=== PATIENT | male | born 1955 | race Caucasian/White ===

== ENCOUNTER 2020-10-24 16:52 | Inpatient (IN) ==
[2020-10-24 17:29] LABS: Platelet Count 241 K/mcL (140-400); Red Blood Count 4.34 M/mcL (4.19-5.50)
[2020-10-24 17:30] LABS: Basophils # 0.1 K/mcL (0.0-0.2); Basophils % 0.8 %; Eosinophils # 0.3 K/mcL (0.0-0.6); Eosinophils % 2.5 %; Hematocrit 39.5 % (37.5-50.1); Hemoglobin 11.2 g/dL (12.9-16.9); Immature Granulocytes % 2.9 % (0-4); Lymphocytes # 1.4 K/mcL (0.6-4.6); Lymphocytes % 13.9 %; Mean Corpuscular HGB Conc 28.4 g/dL (31.6-35.5); Mean Corpuscular Hemoglobin 25.8 pg (28.0-33.3); Mean Platelet Volume 9.9 fL (9.4-12.4); Monocytes # 0.6 K/mcL (0.0-1.3); Monocytes % 5.3 %; Neutrophils # 7.7 K/mcL (1.6-8.9); Segmented Neutrophils % 74.6 %; White Blood Count 10.3 K/mcL (4.3-11.1)
[2020-10-24 17:41] LABS: Amphetamine Screen,Urine Negative ng/mL (Cutoff=1000); Barbiturate Screen,Urine Negative ng/mL (Cutoff=200); Benzodiazepines Screen,Urine Negative ng/mL (Cutoff=200); Cannabinoid Screen,Urine Negative ng/mL (Cutoff = 50); Cocaine Screen,Urine Negative ng/mL (Cutoff= 300); Opiate Screen,Urine Negative ng/mL (Cutoff=300); Phencyclidine Screen,Urine Negative ng/mL (Cutoff=25)
[2020-10-24 17:48] LABS: INR 1.1; Prothrombin Time 12.9 Seconds (9.4-12.1)
[2020-10-24 17:49] LABS: Alanine Aminotransferase 8 Units/L (7-52); Albumin 3.6 g/dL (3.5-5.7); Albumin/Globulin Ratio 1.3 (1.1-2.2); Alkaline Phosphatase 67 Units/L (34-104); Aspartate Amino Transferase 12 Units/L (13-39); BUN/Creatinine Ratio 29 (6-26); Bilirubin,Indirect 0.2 mg/dL (0.0-1.0); Bilirubin,Total 0.2 mg/dL (0.3-1.0); Blood Urea Nitrogen 42 mg/dL (8-23); Calcium 8.9 mg/dL (8.6-10.3); Carbon Dioxide 39 mEq/L (23-29); Chloride 100 mEq/L (98-107); Globulin 2.8 g/dL (2.4-3.5); Glucose 154 mg/dL (70-105); Osmolality,Calculated 308 (280-300); Potassium 5.2 mEq/L (3.5-5.1); Sodium 142 mEq/L (136-145); Total Protein 6.4 g/dL (6.4-8.9); Troponin I 0.03 ng/mL (< 0.04); eGFR For African Americans > 60 (> 60); eGFR For Non-African Americans 50 (> 60)
[2020-10-24 17:51] LABS: Activated Partial Thrombo Time 29.2 Seconds (26.0-36.0)
[2020-10-24 17:53] LABS: Hypochromasia Present (Not Present); Microcytosis Present (Not Present); Ovalocytes 1+ (Not Present); Platelet Estimate Normal (Normal); Stomatocytes 1+ (Not Present)
[2020-10-24 17:54] LABS: Bacteria,Urine Few per hpf (None-Few); Bilirubin,Urine Negative (Negative); Blood,Urine Negative (Negative); Clarity,Urine Turbid (Clear); Color,Urine Yellow (Yellow); Glucose,Urine (UA) Normal (Normal); Granular Casts,Urine Moderate per lpf (None Seen); Hyaline Casts,Urine Few per lpf (None Seen); Ketones,Urine Negative (Negative); Leukocyte Esterase,Urine Moderate (Negative); Mucus,Urine Few per lpf (None-Few); Nitrite,Urine Negative (Negative); Protein,Urine Trace mg/dL (Neg-Trace); RBC,Urine 0-3 per hpf (0-3); Squamous Epithelial Cell,Urine Few per hpf (None-Few); Tear Drop Cells 1+ (Not Present); Urobilinogen,Urine Normal (Normal)
[2020-10-24] MEDS ORDERED: cefTRIAXone 1,000 MG in 0.9 % Sodium Chloride Mini Bag 100 ML IVPB ONE (18:21)
[2020-10-24] MEDS ORDERED: cefTRIAXone 1,000 MG in Water for inj. (sterile) 10 ML IVP ONE (18:45)
[2020-10-24 18:58] LABS: VBG HCO3 33 mEq/L (21-27); VBG PCO2 71 mmHg (41-51); VBG PH 7.27 pH Units (7.32-7.42); VBG PO2 150 mmHg (25-50)
[2020-10-24] MEDS ORDERED: Naloxone 0.4 MG/ML INJ IVP PRN (20:31)
[2020-10-24 20:56] LABS: C-Reactive Protein 14 mg/L (Less than 10)
[2020-10-24] MEDS ORDERED: Lactulose 200 GM, Sodium Chloride IRRigation 700 ML RC ONE (21:59)
[2020-10-24] MEDS: carvediloL 6.25 MG TABLET PO SCH (22:39)
[2020-10-24] MEDS: MetroNIDAZOLE 500 MG/100 ML 500 MG/100 ML BAG IVPB SCH (22:45)
[2020-10-24] MEDS ORDERED: Vancomycin 2,000 MG/520 ML IV.SOLN IVPB ONE (23:00)
[2020-10-24 23:01] LABS: ABG Base Excess 10 mEq/L (-2 to 3); ABG HCO3 43 mEq/L (21-27); ABG Oxygen Saturation 89 % (95-98); ABG PCO2 122 mmHg (35-45); ABG PH 7.16 pH Units (7.32-7.45); ABG PO2 77 mmHg (85-104); ABG TCO2 47 mEq/L (20-26)
[2020-10-24] MEDS: Cefepime HCl 2,000 MG in Water for inj. (sterile) 20 ML IVP SCH (23:35)
[2020-10-25 00:10] LABS: ABG Base Excess 12 mEq/L (-2 to 3); ABG HCO3 42 mEq/L (21-27); ABG Oxygen Saturation 89 % (95-98); ABG PCO2 96 mmHg (35-45); ABG PH 7.25 pH Units (7.32-7.45); ABG PO2 71 mmHg (85-104); ABG TCO2 45 mEq/L (20-26); Blood Gas Modality AVAPS; Blood Gas VT 500 cc
[2020-10-25 01:29] LABS: Eosinophils % 0.4 %; Hemoglobin 11.3 g/dL (12.9-16.9)
[2020-10-25 01:30] LABS: Basophils # 0.1 K/mcL (0.0-0.2); Basophils % 0.8 %; Hematocrit 40.2 % (37.5-50.1); Lymphocytes # 0.9 K/mcL (0.6-4.6); Lymphocytes % 8.7 %; Mean Corpuscular HGB Conc 28.1 g/dL (31.6-35.5); Mean Corpuscular Hemoglobin 24.9 pg (28.0-33.3); Mean Corpuscular Volume 88.7 fL (83.0-100.0); Mean Platelet Volume 10.1 fL (9.4-12.4); Monocytes # 0.6 K/mcL (0.0-1.3); Monocytes % 5.3 %; Neutrophils # 8.6 K/mcL (1.6-8.9); Nucleated Red Blood Cells 0.2 /100 WBC (0); Platelet Count 228 K/mcL (140-400); Red Blood Count 4.53 M/mcL (4.19-5.50); Segmented Neutrophils % 80.8 %; White Blood Count 10.6 K/mcL (4.3-11.1)
[2020-10-25 01:44] LABS: BUN/Creatinine Ratio 32 (6-26); Blood Urea Nitrogen 43 mg/dL (8-23); Calcium 8.6 mg/dL (8.6-10.3); Carbon Dioxide 34 mEq/L (23-29); Chloride 103 mEq/L (98-107); Glucose 146 mg/dL (70-105); Osmolality,Calculated 307 (280-300); Potassium 5.1 mEq/L (3.5-5.1); Sodium 142 mEq/L (136-145); eGFR For African Americans > 60 (> 60); eGFR For Non-African Americans 53 (> 60)
[2020-10-25 02:35] LABS: Anisocytosis 1+ (Not Present); Platelet Estimate Normal (Normal)
[2020-10-25 02:36] LABS: Hypochromasia Present (Not Present); Poikilocytosis 1+ (Not Present)
[2020-10-25] MEDS ORDERED: Dextrose Gel 15 GM/37.5 ML TUBE PO PRN ×2 (03:28)
[2020-10-25] MEDS ORDERED: *HR* Dextrose 50 % in Water (Vial) 50 ML VIAL IVP PRN (03:28)
[2020-10-25] MEDS ORDERED: D5% in Water 1,000 ML IVC PRN (03:28)
[2020-10-25] MEDS: *HR* Heparin 5,000 UNIT/ML VIAL SQ SCH ×3 (05:03→20:18)
[2020-10-25] MEDS: MethylPREDNISolone 40 MG/ML VIAL IVP SCH ×3 (05:03→20:17)
[2020-10-25] MEDS: MetroNIDAZOLE 500 MG/100 ML 500 MG/100 ML BAG IVPB SCH (05:04)
[2020-10-25] MEDS: Ipratropium/Albuterol Neb 3 ML IH SCH ×6 (05:33→23:11)
[2020-10-25] MEDS: Insulin LISPRO 300 UNITS/3 ML VIAL SUBQ SCH ×3 (06:06→18:53)
[2020-10-25 08:06] LABS: ABG Base Excess 11 mEq/L (-2 to 3); ABG HCO3 41 mEq/L (21-27); ABG Oxygen Saturation 95 % (95-98); ABG PCO2 95 mmHg (35-45); ABG PH 7.24 pH Units (7.32-7.45); ABG PO2 97 mmHg (85-104); ABG TCO2 44 mEq/L (20-26); Blood Gas Modality NIV; Blood Gas VT 500 cc
[2020-10-25] MEDS: Cefepime HCl 2,000 MG in Water for inj. (sterile) 20 ML IVP SCH (08:25)
[2020-10-25] MEDS: Cyanocobalamin (B-12) 1,000 MCG TABLET PO SCH (08:26)
[2020-10-25] MEDS: carvediloL 6.25 MG TABLET PO SCH ×2 (08:27→17:19)
[2020-10-25] MEDS: Magnesium Oxide 400 MG TABLET PO SCH (08:27)
[2020-10-25] MEDS: Aspirin Enteric Coated 81 MG Tablet PO SCH (08:27)
[2020-10-25] MEDS: Vitamin B Complex/Vit C/Vit E 1 EACH TABLET PO SCH (08:27)
[2020-10-25] MEDS: Cholecalciferol (D-3) 1,000 UNIT (25MCG) TABLET PO SCH (08:27)
[2020-10-25] MEDS ORDERED: Vancomycin 1,250 MG/262.5 ML IV.SOLN IVPB SCH (12:00)
[2020-10-25 17:19] LABS: ABG Base Excess 9 mEq/L (-2 to 3); ABG HCO3 37 mEq/L (21-27); ABG Oxygen Saturation 96 % (95-98); ABG PCO2 75 mmHg (35-45); ABG PO2 91 mmHg (85-104); ABG TCO2 40 mEq/L (20-26); Blood Gas Modality avaps; Blood Gas VT 550 cc
[2020-10-26 04:06] LABS: Hematocrit 31.8 % (37.5-50.1); Mean Corpuscular HGB Conc 29.6 g/dL (31.6-35.5); Mean Corpuscular Hemoglobin 25.3 pg (28.0-33.3); Mean Corpuscular Volume 85.5 fL (83.0-100.0); Mean Platelet Volume 9.9 fL (9.4-12.4); Platelet Count 188 K/mcL (140-400); Red Blood Count 3.72 M/mcL (4.19-5.50); White Blood Count 8.1 K/mcL (4.3-11.1)
[2020-10-26 04:09] LABS: Hemoglobin 9.4 g/dL (12.9-16.9)
[2020-10-26] MEDS: Ipratropium/Albuterol Neb 3 ML IH SCH ×6 (04:21→23:11)
[2020-10-26 04:22] LABS: VBG HCO3 34 mEq/L (21-27); VBG PCO2 60 mmHg (41-51); VBG PH 7.36 pH Units (7.32-7.42); VBG PO2 118 mmHg (25-50)
[2020-10-26 04:23] LABS: Calcium 8.9 mg/dL (8.6-10.3); Magnesium 2.3 mg/dL (1.6-2.6)
[2020-10-26] MEDS: Insulin LISPRO 300 UNITS/3 ML VIAL SUBQ SCH ×5 (04:28→19:30)
[2020-10-26] MEDS: MethylPREDNISolone 40 MG/ML VIAL IVP SCH ×3 (04:45→16:27)
[2020-10-26] MEDS: *HR* Heparin 5,000 UNIT/ML VIAL SQ SCH ×3 (04:45→20:28)
[2020-10-26] MEDS: Cyanocobalamin (B-12) 1,000 MCG TABLET PO SCH (09:37)
[2020-10-26] MEDS: Cholecalciferol (D-3) 1,000 UNIT (25MCG) TABLET PO SCH (09:37)
[2020-10-26] MEDS: Vitamin B Complex/Vit C/Vit E 1 EACH TABLET PO SCH (09:38)
[2020-10-26] MEDS: carvediloL 6.25 MG TABLET PO SCH ×2 (09:38→16:30)
[2020-10-26] MEDS: Aspirin Enteric Coated 81 MG Tablet PO SCH (09:38)
[2020-10-26] MEDS: Magnesium Oxide 400 MG TABLET PO SCH (09:38)
[2020-10-26] MEDS: metroNIDAZOLE 500 MG TABLET PO SCH ×3 (13:04→20:28)
[2020-10-26] MEDS: Cefdinir 300 MG CAPSULE PO SCH ×2 (13:04→20:28)
[2020-10-26] MEDS: Nystatin POWDER 30 GM BOTTLE TP SCH ×2 (16:28→20:30)
[2020-10-27] MEDS: MethylPREDNISolone 40 MG/ML VIAL IVP SCH ×2 (00:56→10:10)
[2020-10-27] MEDS: Insulin LISPRO 300 UNITS/3 ML VIAL SUBQ SCH ×4 (00:57→17:12)
[2020-10-27] MEDS: Ipratropium/Albuterol Neb 3 ML IH SCH ×4 (03:54→20:19)
[2020-10-27] MEDS: *HR* Heparin 5,000 UNIT/ML VIAL SQ SCH ×3 (04:55→21:40)
[2020-10-27 05:34] LABS: Hematocrit 34.7 % (37.5-50.1); Hemoglobin 10.2 g/dL (12.9-16.9); Mean Corpuscular HGB Conc 29.4 g/dL (31.6-35.5); Mean Corpuscular Hemoglobin 25.1 pg (28.0-33.3); Mean Corpuscular Volume 85.5 fL (83.0-100.0); Mean Platelet Volume 9.9 fL (9.4-12.4); Platelet Count 202 K/mcL (140-400); Red Blood Count 4.06 M/mcL (4.19-5.50); Red Cell Distribution Width 14.7 % (11.5-14.5); White Blood Count 6.5 K/mcL (4.3-11.1)
[2020-10-27 05:37] LABS: VBG HCO3 35 mEq/L (21-27); VBG PCO2 62 mmHg (41-51); VBG PH 7.36 pH Units (7.32-7.42); VBG PO2 52 mmHg (25-50)
[2020-10-27 05:49] LABS: BUN/Creatinine Ratio 39 (6-26); Blood Urea Nitrogen 51 mg/dL (8-23); Calcium 9.2 mg/dL (8.6-10.3); Carbon Dioxide 36 mEq/L (23-29); Chloride 100 mEq/L (98-107); Glucose 157 mg/dL (70-105); Magnesium 2.2 mg/dL (1.6-2.6); Osmolality,Calculated 307 (280-300); Potassium 4.8 mEq/L (3.5-5.1); Sodium 140 mEq/L (136-145); eGFR For African Americans > 60 (> 60); eGFR For Non-African Americans 54 (> 60)
[2020-10-27] MEDS: carvediloL 6.25 MG TABLET PO SCH ×2 (10:10→17:13)
[2020-10-27] MEDS: Cholecalciferol (D-3) 1,000 UNIT (25MCG) TABLET PO SCH (10:11)
[2020-10-27] MEDS: Magnesium Oxide 400 MG TABLET PO SCH (10:11)
[2020-10-27] MEDS: Vitamin B Complex/Vit C/Vit E 1 EACH TABLET PO SCH (10:11)
[2020-10-27] MEDS: Cyanocobalamin (B-12) 1,000 MCG TABLET PO SCH (10:11)
[2020-10-27] MEDS: Cefdinir 300 MG CAPSULE PO SCH ×2 (10:11→21:39)
[2020-10-27] MEDS: Aspirin Enteric Coated 81 MG Tablet PO SCH (10:11)
[2020-10-27] MEDS: metroNIDAZOLE 500 MG TABLET PO SCH ×3 (10:11→21:39)
[2020-10-27] MEDS: Nystatin POWDER 30 GM BOTTLE TP SCH ×3 (10:13→21:40)
[2020-10-27] MEDS ORDERED: E-Z-HD (BARIUM SULF) SUSPENSION PO ONE (10:57)
[2020-10-27] MEDS ORDERED: E-Z-PAQUE (BARIUM SULF) SUSP 1 BOTTLE PO ONE (10:57)
[2020-10-27] MEDS: predniSONE 20 MG TABLET PO SCH (12:07)
[2020-10-27] MEDS: risperiDONE 0.25 MG TABLET PO SCH (12:07)
[2020-10-27] MEDS ORDERED: Insulin LISPRO 300 UNITS/3 ML VIAL SUBQ SCH (21:00)
[2020-10-27] MEDS ORDERED: risperiDONE 1 MG TABLET PO SCH (21:00)
[2020-10-28] MEDS: Ipratropium/Albuterol Neb 3 ML IH SCH ×2 (03:51→09:12)
[2020-10-28] MEDS: *HR* Heparin 5,000 UNIT/ML VIAL SQ SCH (05:10)
[2020-10-28] MEDS: risperiDONE 0.25 MG TABLET PO SCH (07:38)
[2020-10-28] MEDS: carvediloL 6.25 MG TABLET PO SCH (07:39)
[2020-10-28] MEDS: Cefdinir 300 MG CAPSULE PO SCH (07:39)
[2020-10-28] MEDS: metroNIDAZOLE 500 MG TABLET PO SCH (07:39)
[2020-10-28] MEDS: Aspirin Enteric Coated 81 MG Tablet PO SCH (07:39)
[2020-10-28] MEDS: predniSONE 20 MG TABLET PO SCH (07:39)
[2020-10-28] MEDS: Insulin LISPRO 300 UNITS/3 ML VIAL SUBQ SCH ×2 (07:40→11:38)
[2020-10-28] MEDS ORDERED: levoFLOXacin 750 MG TABLET PO SCH (09:00)
[2020-10-28 10:15] VITALS: BP 167/69
[2020-10-28] MEDS: Nystatin POWDER 30 GM BOTTLE TP SCH (11:38)
== END 2020-10-28 12:32 | DRG 137 ==
LOC: 3ANU 16:52 → EMEROOARM 16:52 → 3ANU 20:45 → 2NNU 22:28 → SUATTDRO 10-25 01:52 → 2ANU 10-26 10:52
PROVIDERS: ADMIT Internal Medicine; ATTEND Internal Medicine

== ENCOUNTER 2021-01-30 22:32 | Inpatient (IN) ==
[2021-01-31 01:48] LABS: VBG HCO3 38 mEq/L (21-27); VBG PCO2 45 mmHg (41-51); VBG PH 7.54 pH Units (7.32-7.42); VBG PO2 192 mmHg (25-50)
[2021-01-31 01:53] LABS: Basophils % 0.4 %; Mean Corpuscular Volume 88.1 fL (83.0-100.0)
[2021-01-31 01:55] LABS: Eosinophils # 0.2 K/mcL (0.0-0.6); Eosinophils % 2.4 %; Hematocrit 27.3 % (37.5-50.1); Hemoglobin 7.3 g/dL (12.9-16.9); Lymphocytes # 0.6 K/mcL (0.6-4.6); Lymphocytes % 8.4 %; Mean Corpuscular HGB Conc 26.7 g/dL (31.6-35.5); Mean Corpuscular Hemoglobin 23.5 pg (28.0-33.3); Monocytes # 0.6 K/mcL (0.0-1.3); Monocytes % 7.7 %; Neutrophils # 6.1 K/mcL (1.6-8.9); Platelet Count 174 K/mcL (140-400); Segmented Neutrophils % 80.1 %; White Blood Count 7.6 K/mcL (4.3-11.1)
[2021-01-31 02:03] LABS: INR 1.2; Prothrombin Time 14.3 Seconds (9.4-12.1)
[2021-01-31 02:06] LABS: Activated Partial Thrombo Time 28.8 Seconds (26.0-36.0)
[2021-01-31 02:15] LABS: Alanine Aminotransferase 11 Units/L (7-52); Albumin 2.6 g/dL (3.5-5.7); Albumin/Globulin Ratio 1.2 (1.1-2.2); Alkaline Phosphatase 63 Units/L (34-104); Aspartate Amino Transferase 11 Units/L (13-39); BUN/Creatinine Ratio 35 (6-26); Bilirubin,Indirect 0.3 mg/dL (0.0-1.0); Bilirubin,Total 0.3 mg/dL (0.3-1.0); Blood Urea Nitrogen 46 mg/dL (8-23); Calcium 8.7 mg/dL (8.6-10.3); Carbon Dioxide 39 mEq/L (23-29); Chloride 107 mEq/L (98-107); Globulin 2.1 g/dL (2.4-3.5); Glucose 186 mg/dL (70-105); Osmolality,Calculated 327 (280-300); Potassium 4.1 mEq/L (3.5-5.1); Sodium 150 mEq/L (136-145); Total Protein 4.7 g/dL (6.4-8.9); Troponin I < 0.03 ng/mL (< 0.04); eGFR For African Americans > 60 (> 60); eGFR For Non-African Americans 54 (> 60)
[2021-01-31] MEDS ORDERED: 0.9 % Sodium Chloride 500 ML IVC ONE (02:26)
[2021-01-31 02:37] LABS: Anisocytosis 1+ (Not Present); Hypochromasia Present (Not Present); Platelet Estimate Normal (Normal); Poikilocytosis 1+ (Not Present)
[2021-01-31] MEDS ORDERED: Pantoprazole 40 MG VIAL IVP ONE (03:01)
[2021-01-31] MEDS ORDERED: Piperacillin/Tazobactam 3.375 GM in Water for inj. (sterile) 20 ML IVP ONE (03:02)
[2021-01-31] MEDS ORDERED: Vancomycin 2,000 MG/520 ML IV.SOLN IVPB ONE (03:30)
[2021-01-31] MEDS ORDERED: Naloxone 0.4 MG/ML INJ IVP PRN (07:59)
[2021-01-31] MEDS ORDERED: Ipratropium/Albuterol Neb 3 ML IH PRN (08:01)
[2021-01-31] MEDS ORDERED: methylPREDNISolone 125 MG/2 ML VIAL IVP ONE (08:02)
[2021-01-31] MEDS: Ipratropium/Albuterol Neb 3 ML IH SCH ×6 (08:10→23:59)
[2021-01-31 08:17] LABS: ABG Base Excess 10 mEq/L (-2 to 3); ABG HCO3 38 mEq/L (21-27); ABG Oxygen Saturation 95 % (95-98); ABG PCO2 81 mmHg (35-45); ABG PH 7.28 pH Units (7.32-7.45); ABG PO2 91 mmHg (85-104); ABG TCO2 41 mEq/L (20-26)
[2021-01-31] MEDS: Nystatin POWDER 30 GM BOTTLE TP SCH ×3 (10:41→19:48)
[2021-01-31] MEDS: MethylPREDNISolone 40 MG/ML VIAL IVP SCH (15:00)
[2021-01-31] MEDS: *HR* Heparin 5,000 UNIT/ML VIAL SQ SCH ×2 (15:00→19:48)
[2021-01-31 15:32] LABS: Bilirubin,Urine Negative (Negative); Blood,Urine Negative (Negative); Clarity,Urine Clear (Clear); Color,Urine Light-Yellow (Yellow); Glucose,Urine (UA) Normal (Normal); Ketones,Urine Negative (Negative); Leukocyte Esterase,Urine Negative (Negative); Nitrite,Urine Negative (Negative); PH,Urine 5.5 pH Units (5.0-8.0); Protein,Urine Trace mg/dL (Neg-Trace); Specific Gravity,Urine 1.016 (1.010-1.025); Urobilinogen,Urine Normal (Normal)
[2021-01-31 15:40] LABS: Potassium,Urine 49.2 mEq/L; Sodium, Urine 51.3 mEq/L
[2021-01-31] MEDS ORDERED: Piperacillin/Tazobactam 3.375 GM in 0.9 % Sodium Chloride Mini Bag 100 ML IVPB SCH (16:00)
[2021-01-31] MEDS ORDERED: Ringers Solution, Lactated 500 ML IVC ONE (17:12)
[2021-01-31] MEDS ORDERED: Ringers Solution, Lactated 1,000 ML IVC ONE ×2 (17:35→18:15)
[2021-01-31] MEDS: Cefepime HCl 2,000 MG in Water for inj. (sterile) 20 ML IVP SCH (17:37)
[2021-01-31] MEDS: Ringers Solution, Lactated 1,000 ML ONE ×2 (17:40→17:42)
[2021-01-31 17:56] LABS: Eosinophils % 0.1 %; Red Cell Distribution Width 15.9 % (11.5-14.5)
[2021-01-31 17:58] LABS: Basophils % 0.1 %; Hematocrit 31.6 % (37.5-50.1); Hemoglobin 9.1 g/dL (12.9-16.9); Immature Granulocytes % 0.7 % (0-4); Lymphocytes % 6.7 %; Mean Corpuscular HGB Conc 28.8 g/dL (31.6-35.5); Mean Corpuscular Hemoglobin 24.6 pg (28.0-33.3); Mean Corpuscular Volume 85.4 fL (83.0-100.0); Mean Platelet Volume 10.6 fL (9.4-12.4); Monocytes # 0.5 K/mcL (0.0-1.3); Monocytes % 3.4 %; Neutrophils # 12.8 K/mcL (1.6-8.9); Platelet Count 195 K/mcL (140-400); White Blood Count 14.4 K/mcL (4.3-11.1)
[2021-01-31 18:20] LABS: Hypochromasia Present (Not Present)
[2021-01-31] MEDS ORDERED: D5% in Water 1,000 ML IVC PRN (18:44)
[2021-01-31] MEDS ORDERED: *HR* Dextrose 50 % in Water (Vial) 50 ML VIAL IVP PRN (18:44)
[2021-01-31] MEDS ORDERED: Dextrose Gel 15 GM/37.5 ML TUBE PO PRN ×2 (18:44)
[2021-01-31] MEDS: risperiDONE 1 MG TABLET PO SCH (19:36)
[2021-01-31 21:39] LABS: Blood Gas Pressure Support 10 cm H2O; Mixed Venous Blood pCO2 69 mmHg (44-46); Mixed Venous Blood pH 7.34 pH Units (7.34-7.36); Mixed Venous Blood pO2 28 mmHg (35-45)
[2021-01-31] MEDS ORDERED: Acetaminophen IV 500 MG/50 ML BAG IVPB ONE (23:47)
[2021-02-01] MEDS: Insulin LISPRO 300 UNITS/3 ML VIAL SUBQ SCH ×4 (00:10→16:43)
[2021-02-01] MEDS: MethylPREDNISolone 40 MG/ML VIAL IVP SCH ×3 (00:16→16:43)
[2021-02-01] MEDS: Cefepime HCl 2,000 MG in Water for inj. (sterile) 20 ML IVP SCH ×3 (01:29→16:43)
[2021-02-01] MEDS: Ipratropium/Albuterol Neb 3 ML IH SCH ×5 (04:27→19:57)
[2021-02-01] MEDS: *HR* Heparin 5,000 UNIT/ML VIAL SQ SCH ×3 (04:50→19:41)
[2021-02-01 04:53] LABS: Eosinophils % 0.1 %; Immature Granulocytes % 1.3 % (0-4); Mean Platelet Volume 10.7 fL (9.4-12.4); Monocytes % 0.5 %
[2021-02-01 04:55] LABS: Basophils % 0.1 %; Hematocrit 30.3 % (37.5-50.1); Hemoglobin 8.8 g/dL (12.9-16.9); Immature Platelets 2.4 % (1.1-6.1); Lymphocytes # 0.4 K/mcL (0.6-4.6); Mean Corpuscular Hemoglobin 24.2 pg (28.0-33.3); Mean Corpuscular Volume 83.5 fL (83.0-100.0); Monocytes # 0.1 K/mcL (0.0-1.3); Neutrophils # 9.1 K/mcL (1.6-8.9); Platelet Count 233 K/mcL (140-400); Red Blood Count 3.63 M/mcL (4.19-5.50); Red Cell Distribution Width 15.9 % (11.5-14.5); White Blood Count 9.7 K/mcL (4.3-11.1)
[2021-02-01 05:00] LABS: INR 1.2
[2021-02-01] MEDS ORDERED: Vancomycin 1,500 MG/265 ML IV.SOLN IVPB SCH (05:00)
[2021-02-01 05:13] LABS: BUN/Creatinine Ratio 35 (6-26); Blood Urea Nitrogen 45 mg/dL (8-23); Carbon Dioxide 32 mEq/L (23-29); Chloride 108 mEq/L (98-107); Glucose 183 mg/dL (70-105); Osmolality,Calculated 320 (280-300); Potassium 4.6 mEq/L (3.5-5.1); Sodium 147 mEq/L (136-145); eGFR For African Americans > 60 (> 60); eGFR For Non-African Americans 55 (> 60)
[2021-02-01] MEDS ORDERED: Water for inj. (sterile) 20 ML IV ONE (09:44)
[2021-02-01] MEDS: risperiDONE 0.25 MG TABLET PO SCH (09:52)
[2021-02-01] MEDS: Nystatin POWDER 30 GM BOTTLE TP SCH ×3 (09:53→23:20)
[2021-02-01] MEDS: Pantoprazole 40 MG VIAL IVP SCH (09:53)
[2021-02-01] MEDS ORDERED: Vancomycin 1 EACH in 0.9 % Sodium Chloride 250 ML IVPB SCH (10:00)
[2021-02-01] MEDS: risperiDONE 1 MG TABLET PO SCH (19:41)
[2021-02-02] MEDS: Ipratropium/Albuterol Neb 3 ML IH SCH ×7 (00:16→23:38)
[2021-02-02] MEDS: MethylPREDNISolone 40 MG/ML VIAL IVP SCH ×3 (01:36→20:25)
[2021-02-02] MEDS: Cefepime HCl 2,000 MG in Water for inj. (sterile) 20 ML IVP SCH ×3 (01:36→17:27)
[2021-02-02 04:45] LABS: Basophils % 0.2 %; Hematocrit 25.3 % (37.5-50.1); Hemoglobin 7.5 g/dL (12.9-16.9); Immature Granulocytes % 0.8 % (0-4); Lymphocytes # 0.5 K/mcL (0.6-4.6); Lymphocytes % 7.5 %; Mean Corpuscular HGB Conc 29.6 g/dL (31.6-35.5); Mean Corpuscular Hemoglobin 24.6 pg (28.0-33.3); Monocytes # 0.2 K/mcL (0.0-1.3); Monocytes % 2.7 %; Neutrophils # 5.3 K/mcL (1.6-8.9); Platelet Count 201 K/mcL (140-400); Red Blood Count 3.05 M/mcL (4.19-5.50); Segmented Neutrophils % 88.8 %
[2021-02-02 04:52] LABS: INR 1.2; Prothrombin Time 14.2 Seconds (9.4-12.1)
[2021-02-02 04:59] LABS: BUN/Creatinine Ratio 35 (6-26); Blood Urea Nitrogen 49 mg/dL (8-23); Calcium 8.8 mg/dL (8.6-10.3); Carbon Dioxide 35 mEq/L (23-29); Chloride 107 mEq/L (98-107); Glucose 221 mg/dL (70-105); Osmolality,Calculated 320 (280-300); Potassium 4.4 mEq/L (3.5-5.1); Sodium 145 mEq/L (136-145); eGFR For African Americans > 60 (> 60); eGFR For Non-African Americans 51 (> 60)
[2021-02-02] MEDS: *HR* Heparin 5,000 UNIT/ML VIAL SQ SCH (05:06)
[2021-02-02] MEDS: Pantoprazole 40 MG VIAL IVP SCH (08:58)
[2021-02-02] MEDS: Insulin LISPRO 300 UNITS/3 ML VIAL SUBQ SCH ×5 (09:04→20:26)
[2021-02-02] MEDS: risperiDONE 0.25 MG TABLET PO SCH (09:14)
[2021-02-02 10:33] LABS: Hematocrit 27.8 % (37.5-50.1); Hemoglobin 7.7 g/dL (12.9-16.9)
[2021-02-02] MEDS: Nystatin POWDER 30 GM BOTTLE TP SCH ×3 (11:21→20:26)
[2021-02-02] MEDS: risperiDONE 1 MG TABLET PO SCH (20:26)
[2021-02-03] MEDS: Cefepime HCl 2,000 MG in Water for inj. (sterile) 20 ML IVP SCH ×3 (01:09→17:16)
[2021-02-03 02:43] LABS: VBG HCO3 33 mEq/L (21-27); VBG PCO2 47 mmHg (41-51); VBG PH 7.45 pH Units (7.32-7.42); VBG PO2 135 mmHg (25-50)
[2021-02-03 02:53] LABS: Segmented Neutrophils % 80.7 %
[2021-02-03 02:55] LABS: Hematocrit 26.1 % (37.5-50.1); Hemoglobin 7.8 g/dL (12.9-16.9); Immature Granulocytes % 1.6 % (0-4); Lymphocytes % 14.6 %; Mean Corpuscular HGB Conc 29.9 g/dL (31.6-35.5); Mean Corpuscular Hemoglobin 24.7 pg (28.0-33.3); Mean Corpuscular Volume 82.6 fL (83.0-100.0); Mean Platelet Volume 10.5 fL (9.4-12.4); Monocytes # 0.2 K/mcL (0.0-1.3); Monocytes % 3.1 %; Neutrophils # 4.1 K/mcL (1.6-8.9); Platelet Count 173 K/mcL (140-400); Red Blood Count 3.16 M/mcL (4.19-5.50); Red Cell Distribution Width 15.5 % (11.5-14.5); White Blood Count 5.1 K/mcL (4.3-11.1)
[2021-02-03 03:02] LABS: BUN/Creatinine Ratio 38 (6-26); Blood Urea Nitrogen 55 mg/dL (8-23); Calcium 8.5 mg/dL (8.6-10.3); Carbon Dioxide 34 mEq/L (23-29); Chloride 104 mEq/L (98-107); Glucose 219 mg/dL (70-105); Osmolality,Calculated 318 (280-300); Potassium 5.1 mEq/L (3.5-5.1); Sodium 143 mEq/L (136-145); eGFR For African Americans > 60 (> 60); eGFR For Non-African Americans 50 (> 60)
[2021-02-03 03:03] LABS: Lymphocytes # 0.7 K/mcL (0.6-4.6)
[2021-02-03] MEDS: Ipratropium/Albuterol Neb 3 ML IH SCH ×6 (03:36→22:48)
[2021-02-03 03:58] LABS: Estimated Average Glucose 134 mg/dl; Hemoglobin A1C 6.3 %
[2021-02-03] MEDS: Insulin LISPRO 300 UNITS/3 ML VIAL SUBQ SCH ×4 (07:36→20:16)
[2021-02-03] MEDS: Nystatin POWDER 30 GM BOTTLE TP SCH ×3 (09:31→20:17)
[2021-02-03] MEDS: MethylPREDNISolone 40 MG/ML VIAL IVP SCH (09:31)
[2021-02-03] MEDS: Pantoprazole 40 MG VIAL IVP SCH (09:31)
[2021-02-03] MEDS: risperiDONE 0.25 MG TABLET PO SCH (09:32)
[2021-02-03] MEDS ORDERED: Vancomycin 1,250 MG/262.5 ML IV.SOLN IVPB ONE (12:00)
[2021-02-03] MEDS ORDERED: Acetaminophen 325 MG TABLET PO PRN (17:20)
[2021-02-03] MEDS: risperiDONE 1 MG TABLET PO SCH (20:17)
[2021-02-04] MEDS: Cefepime HCl 2,000 MG in Water for inj. (sterile) 20 ML IVP SCH ×3 (01:59→16:48)
[2021-02-04 02:21] LABS: Basophils % 0.2 %; Hematocrit 25.3 % (37.5-50.1); Hemoglobin 7.4 g/dL (12.9-16.9); Immature Granulocytes % 4.7 % (0-4); Lymphocytes # 0.7 K/mcL (0.6-4.6); Lymphocytes % 12.6 %; Mean Corpuscular HGB Conc 29.2 g/dL (31.6-35.5); Mean Corpuscular Hemoglobin 23.9 pg (28.0-33.3); Mean Corpuscular Volume 81.9 fL (83.0-100.0); Monocytes # 0.4 K/mcL (0.0-1.3); Monocytes % 8.4 %; Neutrophils # 3.8 K/mcL (1.6-8.9); Nucleated Red Blood Cells 0.6 /100 WBC (0); Platelet Count 172 K/mcL (140-400); Red Blood Count 3.09 M/mcL (4.19-5.50); Red Cell Distribution Width 15.5 % (11.5-14.5); Segmented Neutrophils % 74.1 %; White Blood Count 5.1 K/mcL (4.3-11.1)
[2021-02-04 02:36] LABS: Calcium 8.4 mg/dL (8.6-10.3)
[2021-02-04] MEDS: Ipratropium/Albuterol Neb 3 ML IH SCH ×6 (03:51→23:50)
[2021-02-04] MEDS: Pantoprazole 40 MG VIAL IVP SCH (08:38)
[2021-02-04] MEDS: Insulin LISPRO 300 UNITS/3 ML VIAL SUBQ SCH ×4 (08:39→21:30)
[2021-02-04] MEDS: MethylPREDNISolone 40 MG/ML VIAL IVP SCH (08:39)
[2021-02-04] MEDS: risperiDONE 0.25 MG TABLET PO SCH (08:40)
[2021-02-04] MEDS: Nystatin POWDER 30 GM BOTTLE TP SCH ×3 (08:40→21:31)
[2021-02-04] MEDS ORDERED: 0.9 % Sodium Chloride 500 ML IVC ONE (10:08)
[2021-02-04] MEDS ORDERED: 0.9 % Sodium Chloride 1,000 ML IVC SCH (10:15)
[2021-02-04] MEDS: risperiDONE 1 MG TABLET PO SCH (21:31)
[2021-02-05] MEDS: Ipratropium/Albuterol Neb 3 ML IH SCH ×6 (03:52→23:06)
[2021-02-05] MEDS: Cefepime HCl 2,000 MG in Water for inj. (sterile) 20 ML IVP SCH ×2 (05:34→11:07)
[2021-02-05] MEDS: Insulin LISPRO 300 UNITS/3 ML VIAL SUBQ SCH ×4 (11:04→20:35)
[2021-02-05] MEDS: Nystatin POWDER 30 GM BOTTLE TP SCH ×3 (11:07→20:34)
[2021-02-05] MEDS: Pantoprazole 40 MG VIAL IVP SCH (11:07)
[2021-02-05] MEDS: risperiDONE 0.25 MG TABLET PO SCH (11:07)
[2021-02-05] MEDS: MethylPREDNISolone 40 MG/ML VIAL IVP SCH (11:07)
[2021-02-05 11:30] LABS: Adenovirus Not Detected (Not Detect); Bordetella Pertussis Not Detected (Not Detect); Chlamydophila pneumoniae Not Detected (Not Detect); Coronavirus 229E Not Detected (Not Detect); Coronavirus HKU1 Not Detected (Not Detect); Coronavirus NL63 Not Detected (Not Detect); Coronavirus OC43 Not Detected (Not Detect); Human Metapneumovirus Not Detected (Not Detect); Human Rhinovirus/Enterovirus Not Detected (Not Detect); Influenza A Subtype 2009 H1 Not Detected (Not Detect); Influenza B Not Detected (Not Detect); Mycoplasma pneumoniae Not Detected (Not Detect); Parainfluenza Virus 1 Not Detected (Not Detect); Parainfluenza Virus 2 Not Detected (Not Detect); Parainfluenza Virus 3 Not Detected (Not Detect); Parainfluenza Virus 4 Not Detected (Not Detect); Respiratory Syncytial Virus Not Detected (Not Detect); SARS-CoV-2 Not Detected (Not Detect)
[2021-02-05 12:58] LABS: Basophils % 0.2 %; Eosinophils % 0.8 %; Hematocrit 28.4 % (37.5-50.1); Hemoglobin 8.3 g/dL (12.9-16.9); Lymphocytes % 19.1 %; Mean Corpuscular HGB Conc 29.2 g/dL (31.6-35.5); Mean Corpuscular Hemoglobin 24.3 pg (28.0-33.3); Mean Platelet Volume 10.9 fL (9.4-12.4); Monocytes # 0.4 K/mcL (0.0-1.3); Monocytes % 7.2 %; Neutrophils # 3.4 K/mcL (1.6-8.9); Platelet Count 170 K/mcL (140-400); Red Blood Count 3.42 M/mcL (4.19-5.50); Red Cell Distribution Width 15.3 % (11.5-14.5); Segmented Neutrophils % 67.7 %
[2021-02-05 13:32] LABS: BUN/Creatinine Ratio 52 (6-26); Blood Urea Nitrogen 73 mg/dL (8-23); C-Reactive Protein 7 mg/L (Less than 10); Calcium 8.4 mg/dL (8.6-10.3); Carbon Dioxide 33 mEq/L (23-29); Chloride 105 mEq/L (98-107); Glucose 172 mg/dL (70-105); Osmolality,Calculated 324 (280-300); Potassium 4.3 mEq/L (3.5-5.1); Sodium 144 mEq/L (136-145); eGFR For African Americans > 60 (> 60); eGFR For Non-African Americans 50 (> 60)
[2021-02-05] MEDS ORDERED: Vancomycin 1,500 MG/265 ML IV.SOLN IVPB SCH (15:00)
[2021-02-05] MEDS: 0.9 % Sodium Chloride 1,000 ML IVC SCH (16:56)
[2021-02-05] MEDS: Meropenem 1,000 MG in 0.9 % Sodium Chloride Mini Bag 100 ML IVPB SCH (16:57)
[2021-02-05] MEDS: risperiDONE 1 MG TABLET PO SCH (20:33)
[2021-02-06] MEDS: Meropenem 1,000 MG in 0.9 % Sodium Chloride Mini Bag 100 ML IVPB SCH ×2 (00:45→08:27)
[2021-02-06] MEDS: 0.9 % Sodium Chloride 1,000 ML IVC SCH (00:47)
[2021-02-06] MEDS: Ipratropium/Albuterol Neb 3 ML IH SCH ×4 (04:14→15:45)
[2021-02-06 05:15] LABS: Basophils % 0.1 %; Eosinophils % 0.4 %; Hematocrit 26.2 % (37.5-50.1); Hemoglobin 7.7 g/dL (12.9-16.9); Immature Granulocytes % 4.9 % (0-4); Lymphocytes # 0.9 K/mcL (0.6-4.6); Lymphocytes % 12.4 %; Mean Corpuscular HGB Conc 29.4 g/dL (31.6-35.5); Mean Corpuscular Hemoglobin 24.2 pg (28.0-33.3); Mean Corpuscular Volume 82.4 fL (83.0-100.0); Mean Platelet Volume 10.2 fL (9.4-12.4); Monocytes # 0.5 K/mcL (0.0-1.3); Monocytes % 7.4 %; Neutrophils # 5.5 K/mcL (1.6-8.9); Platelet Count 170 K/mcL (140-400); Red Blood Count 3.18 M/mcL (4.19-5.50); Red Cell Distribution Width 15.2 % (11.5-14.5); Segmented Neutrophils % 74.8 %; White Blood Count 7.3 K/mcL (4.3-11.1)
[2021-02-06 05:32] LABS: BUN/Creatinine Ratio 53 (6-26); Blood Urea Nitrogen 75 mg/dL (8-23); Carbon Dioxide 34 mEq/L (23-29); Chloride 105 mEq/L (98-107); Glucose 195 mg/dL (70-105); Osmolality,Calculated 318 (280-300); Potassium 4.6 mEq/L (3.5-5.1); Sodium 140 mEq/L (136-145); eGFR For African Americans > 60 (> 60); eGFR For Non-African Americans 50 (> 60)
[2021-02-06] MEDS ORDERED: 0.9 % Sodium Chloride 500 ML IVC ONE (07:44)
[2021-02-06 08:24] LABS: % Iron Saturation 14 % (20-55); Iron 35 mcg/dL (65-175); Transferrin 178 mg/dL (203-362)
[2021-02-06] MEDS: Pantoprazole 40 MG VIAL IVP SCH (08:28)
[2021-02-06] MEDS: MethylPREDNISolone 40 MG/ML VIAL IVP SCH (08:28)
[2021-02-06] MEDS: risperiDONE 0.25 MG TABLET PO SCH (08:29)
[2021-02-06 08:30] LABS: Ferritin 48 ng/mL (20-250)
[2021-02-06] MEDS: Insulin LISPRO 300 UNITS/3 ML VIAL SUBQ SCH ×2 (08:30→12:32)
[2021-02-06] MEDS: Nystatin POWDER 30 GM BOTTLE TP SCH (11:04)
[2021-02-06 11:27] VITALS: BP 128/57
[2021-02-07] MEDS ORDERED: Vancomycin 1,500 MG/265 ML IV.SOLN IVPB SCH (17:00)
== END 2021-02-06 16:05 | DRG 133 ==
LOC: 3BNU 22:32 → EMEROOARM 22:32 → SUATTDRO 01-31 04:14 → 2ANU 01-31 05:05 → SUATTDRO 02-01 17:20
PROVIDERS: ADMIT Family Medicine; ATTEND Family Medicine

== ENCOUNTER 2021-03-09 10:24 | Inpatient (IN) ==
[2021-03-09] MEDS ORDERED: methylPREDNISolone 125 MG/2 ML VIAL IVP ONE (11:12)
[2021-03-09] MEDS ORDERED: Ipratropium/Albuterol Neb 3 ML IH ONE (11:13)
[2021-03-09 11:41] LABS: Eosinophils # 0.1 K/mcL (0.0-0.6); Hemoglobin 8.2 g/dL (12.9-16.9); Mean Corpuscular HGB Conc 28.3 g/dL (31.6-35.5); Mean Corpuscular Hemoglobin 24.2 pg (28.0-33.3); Mean Corpuscular Volume 85.5 fL (83.0-100.0); Mean Platelet Volume 10.5 fL (9.4-12.4); Platelet Count 168 K/mcL (140-400); Red Blood Count 3.39 M/mcL (4.19-5.50); Red Cell Distribution Width 16.4 % (11.5-14.5); White Blood Count 6.4 K/mcL (4.3-11.1)
[2021-03-09 12:09] LABS: Alanine Aminotransferase 13 Units/L (7-52); Albumin 2.9 g/dL (3.5-5.7); Albumin/Globulin Ratio 1.5 (1.1-2.2); Alkaline Phosphatase 74 Units/L (34-104); Aspartate Amino Transferase 12 Units/L (13-39); BUN/Creatinine Ratio 29 (6-26); Bilirubin,Indirect 0.3 mg/dL (0.0-1.0); Bilirubin,Total 0.3 mg/dL (0.3-1.0); Blood Urea Nitrogen 37 mg/dL (8-23); Calcium 8.9 mg/dL (8.6-10.3); Carbon Dioxide 44 mEq/L (23-29); Chloride 104 mEq/L (98-107); Glucose 130 mg/dL (70-105); Osmolality,Calculated 314 (280-300); Potassium 4.6 mEq/L (3.5-5.1); Sodium 147 mEq/L (136-145); Total Protein 4.9 g/dL (6.4-8.9); Troponin I < 0.03 ng/mL (< 0.04); eGFR For African Americans > 60 (> 60); eGFR For Non-African Americans 57 (> 60)
[2021-03-09 12:16] LABS: Anisocytosis 1+ (Not Present); Hypochromasia Present (Not Present); Lymphocytes # 0.4 K/mcL (0.6-4.6); Monocytes # 0.1 K/mcL (0.0-1.3); Neutrophils # 5.8 K/mcL (1.6-8.9); Platelet Estimate Normal (Normal)
[2021-03-09 13:33] LABS: VBG HCO3 45 mEq/L (21-27); VBG PCO2 94 mmHg (41-51); VBG PH 7.29 pH Units (7.32-7.42); VBG PO2 87 mmHg (25-50)
[2021-03-09] MEDS ORDERED: Naloxone 0.4 MG/ML INJ IVP PRN (14:59)
[2021-03-09] MEDS ORDERED: Furosemide 40 MG/4 ML VIAL IVP ONE (15:08)
[2021-03-09] MEDS ORDERED: D5% in Water 1,000 ML IVC PRN (15:18)
[2021-03-09] MEDS ORDERED: Dextrose Gel 15 GM/37.5 ML TUBE PO PRN ×2 (15:18)
[2021-03-09] MEDS ORDERED: *HR* Dextrose 50 % in Water (Vial) 50 ML VIAL IVP PRN (15:18)
[2021-03-09] MEDS ORDERED: Azithromycin 500 MG in 0.9 % Sodium Chloride 250 ML IVPB SCH (16:00)
[2021-03-09] MEDS: Insulin LISPRO 300 UNITS/3 ML VIAL SUBQ SCH ×2 (16:15→23:57)
[2021-03-09] MEDS: Azithromycin 250 MG TABLET PO SCH (16:15)
[2021-03-09] MEDS: Ipratropium/Albuterol Neb 3 ML IH SCH ×2 (16:21→23:07)
[2021-03-09] MEDS ORDERED: Perflutren Lipid Microsphere 1.3 ML in 0.9 % Sodium Chloride 8.7 ML IVP PRN (16:37)
[2021-03-09 18:32] LABS: Estimated Average Glucose 134 mg/dl; Hemoglobin A1C 6.3 %
[2021-03-09] MEDS: *HR* Heparin 5,000 UNIT/ML VIAL SQ SCH (22:24)
[2021-03-09 22:34] LABS: Amorphous Sediment,Urine Few per hpf (None-Few); Bilirubin,Urine Negative (Negative); Blood,Urine Negative (Negative); Clarity,Urine Turbid (Clear); Color,Urine Light-Yellow (Yellow); Glucose,Urine (UA) Normal (Normal); Hyaline Casts,Urine Moderate per lpf (None Seen); Ketones,Urine Negative (Negative); Leukocyte Esterase,Urine Large (Negative); Mucus,Urine Few per lpf (None-Few); Nitrite,Urine Negative (Negative); PH,Urine 5.5 pH Units (5.0-8.0); Protein,Urine Negative (Neg-Trace); Specific Gravity,Urine 1.012 (1.010-1.025); Squamous Epithelial Cell,Urine Few per hpf (None-Few); Urobilinogen,Urine Normal (Normal); WBC,Urine 50-100 per hpf (0-3)
[2021-03-09 23:41] LABS: Adenovirus Not Detected (Not Detect); Bordetella Pertussis Not Detected (Not Detect); Chlamydophila pneumoniae Not Detected (Not Detect); Coronavirus 229E Not Detected (Not Detect); Coronavirus HKU1 Not Detected (Not Detect); Coronavirus NL63 Not Detected (Not Detect); Coronavirus OC43 Not Detected (Not Detect); Human Metapneumovirus Not Detected (Not Detect); Human Rhinovirus/Enterovirus Not Detected (Not Detect); Influenza A Subtype 2009 H1 Not Detected (Not Detect); Influenza B Not Detected (Not Detect); Mycoplasma pneumoniae Not Detected (Not Detect); Parainfluenza Virus 1 Not Detected (Not Detect); Parainfluenza Virus 2 Not Detected (Not Detect); Parainfluenza Virus 3 Not Detected (Not Detect); Parainfluenza Virus 4 Not Detected (Not Detect); Respiratory Syncytial Virus Not Detected (Not Detect); SARS-CoV-2 Not Detected (Not Detect)
[2021-03-10 02:38] LABS: VBG HCO3 43 mEq/L (21-27); VBG PCO2 52 mmHg (41-51); VBG PH 7.53 pH Units (7.32-7.42); VBG PO2 192 mmHg (25-50)
[2021-03-10 02:49] LABS: Hematocrit 29.1 % (37.5-50.1); Hemoglobin 8.1 g/dL (12.9-16.9); Mean Corpuscular HGB Conc 27.8 g/dL (31.6-35.5); Mean Corpuscular Hemoglobin 22.9 pg (28.0-33.3); Mean Corpuscular Volume 82.2 fL (83.0-100.0); Mean Platelet Volume 10.1 fL (9.4-12.4); Monocytes # 0.1 K/mcL (0.0-1.3); Platelet Count 217 K/mcL (140-400); Red Blood Count 3.54 M/mcL (4.19-5.50); Red Cell Distribution Width 16.5 % (11.5-14.5)
[2021-03-10 03:00] LABS: Alanine Aminotransferase 12 Units/L (7-52); Albumin/Globulin Ratio 1.4 (1.1-2.2); Alkaline Phosphatase 72 Units/L (34-104); Aspartate Amino Transferase 12 Units/L (13-39); BUN/Creatinine Ratio 31 (6-26); Bilirubin,Total 0.3 mg/dL (0.3-1.0); Blood Urea Nitrogen 40 mg/dL (8-23); Carbon Dioxide 37 mEq/L (23-29); Chloride 101 mEq/L (98-107); Globulin 2.2 g/dL (2.4-3.5); Glucose 155 mg/dL (70-105); Osmolality,Calculated 315 (280-300); Phosphorous 4.4 mg/dL (2.7-4.5); Potassium 5.3 mEq/L (3.5-5.1); Sodium 146 mEq/L (136-145); Total Protein 5.2 g/dL (6.4-8.9); eGFR For African Americans > 60 (> 60); eGFR For Non-African Americans 56 (> 60)
[2021-03-10 03:18] LABS: Lymphocytes # 0.5 K/mcL (0.6-4.6)
[2021-03-10 03:19] LABS: Anisocytosis 1+ (Not Present); Hypochromasia Present (Not Present); Microcytosis Present (Not Present); Platelet Estimate Normal (Normal)
[2021-03-10] MEDS: Ipratropium/Albuterol Neb 3 ML IH SCH ×4 (03:43→22:37)
[2021-03-10] MEDS: *HR* Heparin 5,000 UNIT/ML VIAL SQ SCH ×3 (05:47→20:50)
[2021-03-10] MEDS: Insulin LISPRO 300 UNITS/3 ML VIAL SUBQ SCH ×3 (05:47→16:38)
[2021-03-10] MEDS ORDERED: NON-FORMULARY MEDICATION 1 EACH EACH (Vancomycin 1,500 MG/265 ML Iv.Soln) IVPB SCH (08:15)
[2021-03-10] MEDS ORDERED: Sennosides/Docusate Sodium TABLET PO PRN (08:46)
[2021-03-10] MEDS: levoFLOXacin 750 MG TABLET PO SCH (09:07)
[2021-03-10] MEDS: risperiDONE 0.25 MG TABLET PO SCH ×2 (09:07→20:50)
[2021-03-10] MEDS: Nystatin POWDER 30 GM BOTTLE TP SCH (09:07)
[2021-03-10] MEDS: polyethylene glycoL 3350 17 GM POWD.PACK PO SCH (09:07)
[2021-03-10] MEDS: predniSONE 20 MG TABLET PO SCH (09:07)
[2021-03-10] MEDS: Azithromycin 250 MG TABLET PO SCH (09:07)
[2021-03-10] MEDS ORDERED: *HR* Alteplase (Cathflo) 2 MG VIAL IVP ONE (09:29)
[2021-03-10] MEDS: Ertapenem 1,000 MG in 0.9 % Sodium Chloride Mini Bag 100 ML IVPB SCH (10:22)
[2021-03-10] MEDS ORDERED: Isovue-370 500 ML BOTTLE IVP ONE (10:39)
[2021-03-10 11:06] LABS: ABG Base Excess 11 mEq/L (-2 to 3); ABG HCO3 37 mEq/L (21-27); ABG Oxygen Saturation 95 % (95-98); ABG PCO2 59 mmHg (35-45); ABG PH 7.41 pH Units (7.32-7.45); ABG PO2 77 mmHg (85-104); ABG TCO2 39 mEq/L (20-26)
[2021-03-10] MEDS ORDERED: Artificial Tears SOLN 15 ML BOTTLE BOTH EYES PRN (15:40)
[2021-03-10] MEDS ORDERED: Insulin LISPRO 300 UNITS/3 ML VIAL SUBQ SCH (21:00)
[2021-03-11 04:38] LABS: Hematocrit 24.4 % (37.5-50.1); Hemoglobin 7.3 g/dL (12.9-16.9); Mean Corpuscular HGB Conc 29.9 g/dL (31.6-35.5); Mean Corpuscular Hemoglobin 23.8 pg (28.0-33.3); Mean Corpuscular Volume 79.5 fL (83.0-100.0); Mean Platelet Volume 10.5 fL (9.4-12.4); Platelet Count 230 K/mcL (140-400); Red Blood Count 3.07 M/mcL (4.19-5.50); White Blood Count 6.9 K/mcL (4.3-11.1)
[2021-03-11 05:00] LABS: Calcium 8.7 mg/dL (8.6-10.3); Potassium 4.9 mEq/L (3.5-5.1)
[2021-03-11] MEDS: Ipratropium/Albuterol Neb 3 ML IH SCH ×3 (05:01→15:41)
[2021-03-11 05:05] LABS: ABG Base Excess 12 mEq/L (-2 to 3); ABG HCO3 37 mEq/L (21-27); ABG Oxygen Saturation 96 % (95-98); ABG PCO2 54 mmHg (35-45); ABG PH 7.45 pH Units (7.32-7.45); ABG PO2 79 mmHg (85-104); ABG TCO2 39 mEq/L (20-26); Blood Gas Modality 2LPM
[2021-03-11] MEDS: *HR* Heparin 5,000 UNIT/ML VIAL SQ SCH ×2 (05:42→16:09)
[2021-03-11] MEDS ORDERED: Zinc Sulfate 220 MG CAPSULE PO SCH (07:00)
[2021-03-11] MEDS ORDERED: Magnesium Oxide 400 MG TABLET PO SCH (07:00)
[2021-03-11] MEDS: Nystatin POWDER 30 GM BOTTLE TP SCH ×2 (07:20→11:34)
[2021-03-11] MEDS: Insulin LISPRO 300 UNITS/3 ML VIAL SUBQ SCH ×3 (08:41→17:29)
[2021-03-11] MEDS: Ertapenem 1,000 MG in 0.9 % Sodium Chloride Mini Bag 100 ML IVPB SCH (08:51)
[2021-03-11] MEDS ORDERED: Cyanocobalamin (B-12) 1,000 MCG TABLET PO SCH (09:00)
[2021-03-11] MEDS ORDERED: Cholecalciferol (D-3) 1,000 UNIT (25MCG) TABLET PO SCH (09:00)
[2021-03-11] MEDS ORDERED: Vancomycin 1,500 MG/265 ML IV.SOLN IVPB SCH (09:00)
[2021-03-11] MEDS ORDERED: Renal Vitamin 1 CAP CAPSULE PO SCH (09:00)
[2021-03-11] MEDS ORDERED: *HR* Propofol 200 MG/20 ML VIAL IVP ONE (09:42)
[2021-03-11] MEDS ORDERED: *HR* Rocuronium Bromide 50 MG/5 ML VIAL ONE (09:42)
[2021-03-11] MEDS ORDERED: *HR* Succinylcholine 200 MG/10 ML VIAL IVP ONE (09:42)
[2021-03-11] MEDS ORDERED: Lidocaine -MPF 2% 5 ML VIAL ONE (09:42)
[2021-03-11] MEDS ORDERED: Ondansetron 4 MG/2 ML VIAL ONE (09:42)
[2021-03-11] MEDS: levoFLOXacin 750 MG TABLET PO SCH (11:32)
[2021-03-11] MEDS: predniSONE 20 MG TABLET PO SCH (11:33)
[2021-03-11] MEDS: risperiDONE 0.25 MG TABLET PO SCH (11:33)
[2021-03-11] MEDS: polyethylene glycoL 3350 17 GM POWD.PACK PO SCH (11:34)
[2021-03-11 12:49] LABS: Appearance of Body Fluid Clear (Clear); Volume of Body Fluid 19 mL
[2021-03-11 16:43] VITALS: BP 154/68; PULSE 60; TEMP 98.2; O2SAT 99
== END 2021-03-11 18:31 | DRG 140 ==
LOC: EMEROOARM 10:24 → 2NNU 10:24 → SUATTDRO 18:40
PROVIDERS: ADMIT Pharmacist; ATTEND Student in an Organized Health Care Education/Training Program

== ENCOUNTER 2021-03-12 18:41 | Inpatient (IN) ==
[2021-03-12] MEDS ORDERED: Norepinephrine 4 MG/254 ML IV.SOLN IVC SCH (19:15)
[2021-03-12 19:17] LABS: Platelet Count 194 K/mcL (140-400)
[2021-03-12 19:18] LABS: Hematocrit 30.4 % (37.5-50.1); Hemoglobin 8.6 g/dL (12.9-16.9); Mean Corpuscular HGB Conc 28.3 g/dL (31.6-35.5); Mean Corpuscular Hemoglobin 23.8 pg (28.0-33.3); Mean Platelet Volume 9.7 fL (9.4-12.4); Red Blood Count 3.62 M/mcL (4.19-5.50); Red Cell Distribution Width 16.8 % (11.5-14.5); White Blood Count 6.2 K/mcL (4.3-11.1)
[2021-03-12 19:25] LABS: INR 1.2; Prothrombin Time 13.7 Seconds (9.4-12.1)
[2021-03-12 19:42] LABS: Alanine Aminotransferase 13 Units/L (7-52); Albumin/Globulin Ratio 1.6 (1.1-2.2); Alkaline Phosphatase 63 Units/L (34-104); Aspartate Amino Transferase 24 Units/L (13-39); BUN/Creatinine Ratio 29 (6-26); Bilirubin,Indirect 0.2 mg/dL (0.0-1.0); Bilirubin,Total 0.2 mg/dL (0.3-1.0); Blood Urea Nitrogen 45 mg/dL (8-23); Calcium 8.3 mg/dL (8.6-10.3); Carbon Dioxide 34 mEq/L (23-29); Chloride 102 mEq/L (98-107); Globulin 1.9 g/dL (2.4-3.5); Glucose 164 mg/dL (70-105); Magnesium 2.2 mg/dL (1.6-2.6); Osmolality,Calculated 309 (280-300); Phosphorous 5.8 mg/dL (2.7-4.5); Sodium 142 mEq/L (136-145); Total Protein 4.9 g/dL (6.4-8.9); Troponin I < 0.03 ng/mL (< 0.04); Vancomycin,Random 13 mcg/mL; eGFR For African Americans 54 (> 60); eGFR For Non-African Americans 45 (> 60)
[2021-03-12 19:43] LABS: Anisocytosis 1+ (Not Present); Hypochromasia Present (Not Present); Lymphocytes # 1.2 K/mcL (0.6-4.6); Monocytes # 0.4 K/mcL (0.0-1.3); Platelet Estimate Normal (Normal); Poikilocytosis 1+ (Not Present); Reactive Lymphocytes Present (Not Present)
[2021-03-12 19:45] LABS: ABG Base Excess 9 mEq/L (-2 to 3); ABG HCO3 38 mEq/L (21-27); ABG Oxygen Saturation 82 % (95-98); ABG PCO2 84 mmHg (35-45); ABG PH 7.26 pH Units (7.32-7.45); ABG PO2 57 mmHg (85-104); ABG TCO2 40 mEq/L (20-26); Blood Gas Pressure Support 8 cm H2O
[2021-03-12 19:45] LABS: Basophilic Stippling 1+ (Not Present)
[2021-03-12 20:11] LABS: Bilirubin,Urine Negative (Negative); Blood,Urine Trace-lysed (Negative); Clarity,Urine Clear (Clear); Color,Urine Yellow (Yellow); Glucose,Urine (UA) Normal (Normal); Ketones,Urine Negative (Negative); Leukocyte Esterase,Urine Negative (Negative); Nitrite,Urine Negative (Negative); Protein,Urine 30 mg/dL (Neg-Trace); Specific Gravity,Urine 1.025 (1.010-1.025); Urobilinogen,Urine Normal (Normal)
[2021-03-12 20:20] LABS: Uric Acid Crystals,Urine Present per hpf; WBC,Urine 0-3 per hpf (0-3)
[2021-03-12 20:21] LABS: Amorphous Sediment,Urine Few per hpf (None-Few)
[2021-03-12] MEDS ORDERED: Vancomycin 1,500 MG/265 ML IV.SOLN IVPB ONE (20:30)
[2021-03-12] MEDS ORDERED: Ondansetron 4 MG/2 ML VIAL IVP PRN (22:30)
[2021-03-12] MEDS ORDERED: Naloxone 0.4 MG/ML INJ IVP PRN (22:30)
[2021-03-12] MEDS ORDERED: Ipratropium/Albuterol Neb 3 ML IH PRN (22:38)
[2021-03-12] MEDS ORDERED: *HR* Dextrose 50 % in Water (Vial) 50 ML VIAL IVP PRN (22:44)
[2021-03-12] MEDS ORDERED: Dextrose Gel 15 GM/37.5 ML TUBE PO PRN ×2 (22:44)
[2021-03-12] MEDS ORDERED: D5% in Water 1,000 ML IVC PRN (22:44)
[2021-03-12 23:12] LABS: ABG Base Excess 10 mEq/L (-2 to 3); ABG HCO3 37 mEq/L (21-27); ABG Oxygen Saturation 95 % (95-98); ABG PCO2 74 mmHg (35-45); ABG PH 7.31 pH Units (7.32-7.45); ABG PO2 85 mmHg (85-104); ABG TCO2 40 mEq/L (20-26)
[2021-03-13 05:04] LABS: Eosinophils % 0.2 %
[2021-03-13 05:05] LABS: Basophils % 0.2 %; Hematocrit 30.4 % (37.5-50.1); Hemoglobin 8.3 g/dL (12.9-16.9); Immature Granulocytes % 0.9 % (0-4); Lymphocytes # 0.8 K/mcL (0.6-4.6); Lymphocytes % 3.6 %; Mean Corpuscular HGB Conc 27.3 g/dL (31.6-35.5); Mean Corpuscular Hemoglobin 23.1 pg (28.0-33.3); Mean Corpuscular Volume 84.7 fL (83.0-100.0); Mean Platelet Volume 10.3 fL (9.4-12.4); Monocytes # 1.9 K/mcL (0.0-1.3); Monocytes % 8.5 %; Neutrophils # 19.2 K/mcL (1.6-8.9); Platelet Count 207 K/mcL (140-400); Red Blood Count 3.59 M/mcL (4.19-5.50); Red Cell Distribution Width 16.9 % (11.5-14.5); Segmented Neutrophils % 86.6 %; White Blood Count 22.2 K/mcL (4.3-11.1)
[2021-03-13 05:25] LABS: Calcium 8.1 mg/dL (8.6-10.3); Potassium 4.5 mEq/L (3.5-5.1)
[2021-03-13 05:39] LABS: Hypochromasia Present (Not Present); Platelet Estimate Normal (Normal)
[2021-03-13] MEDS: Insulin LISPRO 300 UNITS/3 ML VIAL SUBQ SCH ×4 (05:53→18:23)
[2021-03-13] MEDS ORDERED: *HR* Heparin 5,000 UNIT/ML VIAL SQ SCH (06:00)
[2021-03-13] MEDS ORDERED: Meropenem 1,000 MG in Water for inj. (sterile) 20 ML IVP SCH (06:00)
[2021-03-13] MEDS ORDERED: Ondansetron 4 MG/2 ML VIAL ONE (08:19)
[2021-03-13] MEDS ORDERED: *HR* Rocuronium Bromide 50 MG/5 ML VIAL ONE ×2 (08:19→10:43)
[2021-03-13] MEDS ORDERED: Lidocaine -MPF 2% 2 ML VIAL ONE (08:19)
[2021-03-13] MEDS ORDERED: *HR* FentaNYL (PF) 100 MCG/2 ML VIAL ONE (08:19)
[2021-03-13] MEDS ORDERED: Lidocaine HCL 4 ML Topical Solution (Laryng-O-Jet Kit Sterile Pak) TP ONE (08:19)
[2021-03-13] MEDS ORDERED: *HR* Succinylcholine 200 MG/10 ML VIAL IVP ONE (08:19)
[2021-03-13] MEDS ORDERED: *HR* Propofol 200 MG/20 ML VIAL IVP ONE (08:20)
[2021-03-13] MEDS ORDERED: *HR* Midazolam HCl 2 MG/2 ML VIAL ONE ×2 (08:23→11:24)
[2021-03-13] MEDS ORDERED: EPHEDrine 50 MG/ML VIAL ONE (09:52)
[2021-03-13] MEDS ORDERED: *HR* Phenylephrine 10 MG/ML VIAL ONE (09:57)
[2021-03-13] MEDS ORDERED: Sugammadex Sodium 200 MG/2 ML VIAL IV ONE (10:31)
[2021-03-13] MEDS ORDERED: Dextrose Gel 15 GM/37.5 ML TUBE PO PRN ×2 (11:32)
[2021-03-13] MEDS ORDERED: Ondansetron 4 MG/2 ML VIAL IVP PRN ×2 (11:32)
[2021-03-13] MEDS ORDERED: D5% in Water 1,000 ML IVC PRN (11:32)
[2021-03-13] MEDS ORDERED: *HR* Dextrose 50 % in Water (Vial) 50 ML VIAL IVP PRN (11:32)
[2021-03-13] MEDS ORDERED: *HR* HYDROmorphone 2 MG/ML SYRINGE IVP PRN (11:32)
[2021-03-13] MEDS ORDERED: Naloxone 0.4 MG/ML INJ IVP PRN (11:32)
[2021-03-13] MEDS ORDERED: Artificial Tears SOLN 15 ML BOTTLE BOTH EYES PRN (11:44)
[2021-03-13] MEDS ORDERED: Ipratropium/Albuterol Neb 3 ML IH PRN (12:12)
[2021-03-13] MEDS: 0.9 % Sodium Chloride 1,000 ML IVC SCH ×2 (12:32→16:21)
[2021-03-13] MEDS: FentaNYL (PF) 1,000 MCG/100 ML IV.SOLN IVC SCH ×2 (12:33→21:11)
[2021-03-13] MEDS: Pantoprazole 40 MG VIAL IVP SCH (13:01)
[2021-03-13] MEDS: Artificial Tears SOLN 15 ML BOTTLE BOTH EYES SCH ×4 (13:01→23:51)
[2021-03-13] MEDS: *HR* Heparin 5,000 UNIT/ML VIAL SQ SCH ×2 (13:01→21:11)
[2021-03-13 13:46] LABS: ABG Base Excess 10 mEq/L (-2 to 3); ABG HCO3 34 mEq/L (21-27); ABG Oxygen Saturation 94 % (95-98); ABG PCO2 40 mmHg (35-45); ABG PH 7.54 pH Units (7.32-7.45); ABG PO2 61 mmHg (85-104); ABG TCO2 35 mEq/L (20-26); Blood Gas Modality ASSIST CONTROL; Blood Gas VT 550 cc
[2021-03-13 16:29] LABS: Acinetobacter baumannii by PCR Not Detected (Not Detect); Candida albicans by PCR Not Detected (Not Detect); Candida glabrata by PCR Not Detected (Not Detect); Candida krusei by PCR Not Detected (Not Detect); Candida parapsilosis by PCR Not Detected (Not Detect); Candida tropicalis by PCR Not Detected (Not Detect); Enterobacter cloacae Cmplx PCR Not Detected (Not Detect); Enterobacteriaceae by PCR Not Detected (Not Detect); Enterococcus by PCR DETECTED (Not Detect); Escherichia coli by PCR Not Detected (Not Detect); Klebsiella oxytoca by PCR Not Detected (Not Detect); Klebsiella pneumoniae by PCR Not Detected (Not Detect); Proteus by PCR Not Detected (Not Detect); Pseudomonas aeruginosa by PCR Not Detected (Not Detect); Serratia marcescens by PCR Not Detected (Not Detect); Staphylococcus aureus by PCR Not Detected (Not Detect); Staphylococcus by PCR DETECTED (Not Detect); Streptococcus agalactiae(B)PCR Not Detected (Not Detect); Streptococcus by PCR Not Detected (Not Detect); Streptococcus pneumoniae PCR Not Detected (Not Detect); Streptococcus pyogenes (A) PCR Not Detected (Not Detect); mecA Methicillin-Resist Gene DETECTED (Not Detect); vanA/B Vancomycin-Resist Genes DETECTED (Not Detect)
[2021-03-13 17:36] LABS: RBC,Pleural Fluid < 2000 RBC/mcL
[2021-03-13 18:05] LABS: LDH,Pleural Fluid 87 Units/L (No Ref Range); Total Protein,Pleural Fluid < 2.0 g/dL
[2021-03-13 18:08] LABS: Appearance of Pleural Fl Clear (Clear); Basophils,Pleural Fluid 0 %; Eosinophils,Pleural Fluid 0 %
[2021-03-13] MEDS: Meropenem 1,000 MG in Water for inj. (sterile) 20 ML IVP SCH (18:23)
[2021-03-13 20:30] LABS: ABG Base Excess 8 mEq/L (-2 to 3); ABG HCO3 33 mEq/L (21-27); ABG Oxygen Saturation 92 % (95-98); ABG PCO2 50 mmHg (35-45); ABG PH 7.43 pH Units (7.32-7.45); ABG PO2 62 mmHg (85-104); ABG TCO2 35 mEq/L (20-26); Blood Gas Modality ASSIST CONTROL; Blood Gas VT 500 cc
[2021-03-13] MEDS: Chlorhexidine Rinse 15 ML MOUTHWASH MM SCH (20:48)
[2021-03-14 03:52] LABS: Basophils % 0.1 %; Lymphocytes % 12.4 %; Red Cell Distribution Width 17.2 % (11.5-14.5)
[2021-03-14 03:52] LABS: VBG Ionized Calcium 1.18 mmol/L (1.15-1.35)
[2021-03-14 03:54] LABS: Eosinophils # 0.1 K/mcL (0.0-0.6); Hematocrit 24.2 % (37.5-50.1); Hemoglobin 6.9 g/dL (12.9-16.9); Immature Granulocytes % 1.4 % (0-4); Lymphocytes # 0.9 K/mcL (0.6-4.6); Mean Corpuscular HGB Conc 28.5 g/dL (31.6-35.5); Mean Corpuscular Hemoglobin 23.3 pg (28.0-33.3); Mean Corpuscular Volume 81.8 fL (83.0-100.0); Mean Platelet Volume 11.1 fL (9.4-12.4); Monocytes # 0.4 K/mcL (0.0-1.3); Monocytes % 5.9 %; Neutrophils # 5.8 K/mcL (1.6-8.9); Platelet Count 160 K/mcL (140-400); Red Blood Count 2.96 M/mcL (4.19-5.50); Segmented Neutrophils % 79.2 %; White Blood Count 7.3 K/mcL (4.3-11.1)
[2021-03-14 04:12] LABS: Albumin 2.4 g/dL (3.5-5.7); Albumin/Globulin Ratio 1.4 (1.1-2.2); Bilirubin,Direct 0.1 mg/dL (0.0-0.2); Bilirubin,Indirect 0.3 mg/dL (0.0-1.0); Bilirubin,Total 0.4 mg/dL (0.3-1.0); Calcium 8.1 mg/dL (8.6-10.3); Globulin 1.7 g/dL (2.4-3.5); Magnesium 1.9 mg/dL (1.6-2.6); Phosphorous 3.7 mg/dL (2.7-4.5); Potassium 4.1 mEq/L (3.5-5.1); Total Protein 4.1 g/dL (6.4-8.9)
[2021-03-14 04:13] LABS: Anisocytosis 1+ (Not Present); Microcytosis Present (Not Present); Platelet Estimate Normal (Normal)
[2021-03-14 04:53] LABS: ABG Base Excess 8 mEq/L (-2 to 3); ABG HCO3 33 mEq/L (21-27); ABG Oxygen Saturation 93 % (95-98); ABG PCO2 49 mmHg (35-45); ABG PH 7.44 pH Units (7.32-7.45); ABG PO2 67 mmHg (85-104); ABG TCO2 35 mEq/L (20-26); Blood Gas Modality ASSIST CONTROL
[2021-03-14] MEDS: Artificial Tears SOLN 15 ML BOTTLE BOTH EYES SCH ×6 (05:08→23:09)
[2021-03-14] MEDS: Insulin LISPRO 300 UNITS/3 ML VIAL SUBQ SCH ×5 (05:09→23:09)
[2021-03-14] MEDS: *HR* Heparin 5,000 UNIT/ML VIAL SQ SCH ×3 (05:18→21:01)
[2021-03-14] MEDS: 0.9 % Sodium Chloride 1,000 ML IVC SCH ×2 (06:00→19:31)
[2021-03-14] MEDS: Meropenem 1,000 MG in Water for inj. (sterile) 20 ML IVP SCH ×2 (06:55→17:37)
[2021-03-14] MEDS: FentaNYL (PF) 1,000 MCG/100 ML IV.SOLN IVC SCH (07:11)
[2021-03-14] MEDS: Pantoprazole 40 MG VIAL IVP SCH (08:39)
[2021-03-14] MEDS: Chlorhexidine Rinse 15 ML MOUTHWASH MM SCH ×2 (08:39→20:00)
[2021-03-14] MEDS ORDERED: Furosemide 40 MG/4 ML VIAL IVP SCH (09:11)
[2021-03-14] MEDS ORDERED: 0.9 % Sodium Chloride 250 ML ONE (09:37)
[2021-03-14 09:39] LABS: ABG Base Excess 9 mEq/L (-2 to 3); ABG HCO3 35 mEq/L (21-27); ABG Oxygen Saturation 87 % (95-98); ABG PCO2 65 mmHg (35-45); ABG PH 7.35 pH Units (7.32-7.45); ABG PO2 57 mmHg (85-104); ABG TCO2 37 mEq/L (20-26); Blood Gas Modality CPAP/PS; Blood Gas Pressure Support 12 cm H2O
[2021-03-14] MEDS: Furosemide 40 MG/4 ML VIAL IVP SCH ×2 (12:10→23:09)
[2021-03-14] MEDS ORDERED: Vancomycin 1,500 MG/265 ML IV.SOLN IVPB SCH ×2 (21:00)
[2021-03-15] MEDS: FentaNYL (PF) 1,000 MCG/100 ML IV.SOLN IVC SCH (02:08)
[2021-03-15 03:02] LABS: Basophils % 0.2 %; Eosinophils # 0.1 K/mcL (0.0-0.6); Eosinophils % 0.8 %; Hematocrit 26.1 % (37.5-50.1); Hemoglobin 7.9 g/dL (12.9-16.9); Lymphocytes # 1.1 K/mcL (0.6-4.6); Lymphocytes % 12.9 %; Mean Corpuscular HGB Conc 30.3 g/dL (31.6-35.5); Mean Corpuscular Hemoglobin 24.8 pg (28.0-33.3); Mean Corpuscular Volume 82.1 fL (83.0-100.0); Mean Platelet Volume 10.3 fL (9.4-12.4); Monocytes # 0.7 K/mcL (0.0-1.3); Monocytes % 8.7 %; Neutrophils # 6.3 K/mcL (1.6-8.9); Platelet Count 156 K/mcL (140-400); Red Blood Count 3.18 M/mcL (4.19-5.50); Red Cell Distribution Width 17.4 % (11.5-14.5); Segmented Neutrophils % 74.4 %; White Blood Count 8.5 K/mcL (4.3-11.1)
[2021-03-15] MEDS: Artificial Tears SOLN 15 ML BOTTLE BOTH EYES SCH ×2 (03:04→08:33)
[2021-03-15 03:07] LABS: VBG Ionized Calcium 1.18 mmol/L (1.15-1.35)
[2021-03-15 03:23] LABS: Albumin 2.5 g/dL (3.5-5.7); Albumin/Globulin Ratio 1.4 (1.1-2.2); Bilirubin,Total 0.4 mg/dL (0.3-1.0); Globulin 1.8 g/dL (2.4-3.5); Magnesium 1.8 mg/dL (1.6-2.6); Phosphorous 3.8 mg/dL (2.7-4.5); Potassium 3.3 mEq/L (3.5-5.1); Total Protein 4.3 g/dL (6.4-8.9)
[2021-03-15] MEDS: Insulin LISPRO 300 UNITS/3 ML VIAL SUBQ SCH ×3 (04:01→18:03)
[2021-03-15 04:51] LABS: Blood Gas VT 500 cc; Mixed Venous Blood pCO2 53 mmHg (44-46); Mixed Venous Blood pH 7.41 pH Units (7.34-7.36); Mixed Venous Blood pO2 39 mmHg (35-45)
[2021-03-15] MEDS: Meropenem 1,000 MG in Water for inj. (sterile) 20 ML IVP SCH ×2 (05:01→17:58)
[2021-03-15] MEDS: *HR* Heparin 5,000 UNIT/ML VIAL SQ SCH ×3 (05:01→21:53)
[2021-03-15] MEDS ORDERED: Furosemide 40 MG/4 ML VIAL IVP ONE (08:01)
[2021-03-15] MEDS ORDERED: Potassium Chloride Elixir 20 MEQ/15 ML UDC GTUBE ONE (08:02)
[2021-03-15] MEDS: Chlorhexidine Rinse 15 ML MOUTHWASH MM SCH (08:33)
[2021-03-15] MEDS: Pantoprazole 40 MG VIAL IVP SCH (08:33)
[2021-03-15] MEDS: 0.9 % Sodium Chloride 1,000 ML IVC SCH (08:46)
[2021-03-15 14:10] LABS: VBG Ionized Calcium 1.15 mmol/L (1.15-1.35)
[2021-03-15 15:26] LABS: Calcium 8.1 mg/dL (8.6-10.3); Potassium 3.7 mEq/L (3.5-5.1)
[2021-03-15] MEDS ORDERED: Potassium Chloride 20 MEQ, Lidocaine 1% 2 ML in 0.9 % Sodium Chloride 250 ML IVPB ONE (15:41)
[2021-03-16] MEDS: Insulin LISPRO 300 UNITS/3 ML VIAL SUBQ SCH ×3 (00:23→12:41)
[2021-03-16 03:27] LABS: Basophils % 0.3 %; Eosinophils # 0.1 K/mcL (0.0-0.6); Eosinophils % 1.3 %; Hematocrit 27.9 % (37.5-50.1); Hemoglobin 8.2 g/dL (12.9-16.9); Lymphocytes # 1.1 K/mcL (0.6-4.6); Lymphocytes % 14.3 %; Mean Corpuscular HGB Conc 29.4 g/dL (31.6-35.5); Mean Corpuscular Hemoglobin 24.6 pg (28.0-33.3); Mean Corpuscular Volume 83.8 fL (83.0-100.0); Mean Platelet Volume 10.8 fL (9.4-12.4); Monocytes # 0.6 K/mcL (0.0-1.3); Neutrophils # 5.8 K/mcL (1.6-8.9); Platelet Count 175 K/mcL (140-400); Red Blood Count 3.33 M/mcL (4.19-5.50); Red Cell Distribution Width 17.6 % (11.5-14.5); Segmented Neutrophils % 72.1 %
[2021-03-16 03:29] LABS: VBG Ionized Calcium 1.21 mmol/L (1.15-1.35)
[2021-03-16 03:50] LABS: Alanine Aminotransferase 8 Units/L (7-52); Albumin 2.4 g/dL (3.5-5.7); Albumin/Globulin Ratio 1.3 (1.1-2.2); Alkaline Phosphatase 52 Units/L (34-104); Aspartate Amino Transferase 9 Units/L (13-39); BUN/Creatinine Ratio 26 (6-26); Bilirubin,Total 0.5 mg/dL (0.3-1.0); Blood Urea Nitrogen 34 mg/dL (8-23); Carbon Dioxide 36 mEq/L (23-29); Chloride 105 mEq/L (98-107); Globulin 1.8 g/dL (2.4-3.5); Glucose 77 mg/dL (70-105); Osmolality,Calculated 310 (280-300); Phosphorous 3.8 mg/dL (2.7-4.5); Potassium 3.7 mEq/L (3.5-5.1); Sodium 147 mEq/L (136-145); Total Protein 4.2 g/dL (6.4-8.9); eGFR For African Americans > 60 (> 60); eGFR For Non-African Americans 55 (> 60)
[2021-03-16] MEDS: *HR* Heparin 5,000 UNIT/ML VIAL SQ SCH ×3 (06:06→20:23)
[2021-03-16] MEDS: Meropenem 1,000 MG in Water for inj. (sterile) 20 ML IVP SCH (06:06)
[2021-03-16] MEDS: Pantoprazole 40 MG VIAL IVP SCH (08:30)
[2021-03-16] MEDS ORDERED: *HR* HYDROmorphone (PF) 1 MG/ML SYRINGE IVP PRN (14:15)
[2021-03-16] MEDS ORDERED: Piperacillin/Tazobactam 3.375 GM in 0.9 % Sodium Chloride Mini Bag 100 ML IVPB SCH (16:00)
[2021-03-16] MEDS ORDERED: Insulin LISPRO 300 UNITS/3 ML VIAL SUBQ SCH ×2 (16:30→21:00)
[2021-03-16] MEDS ORDERED: Ipratropium/Albuterol Neb 3 ML IH PRN (19:18)
[2021-03-16] MEDS ORDERED: Dextrose Gel 15 GM/37.5 ML TUBE PO PRN ×2 (19:18)
[2021-03-16] MEDS ORDERED: D5% in Water 1,000 ML IVC PRN (19:18)
[2021-03-16] MEDS ORDERED: *HR* Dextrose 50 % in Water (Vial) 50 ML VIAL IVP PRN (19:18)
[2021-03-16] MEDS ORDERED: Naloxone 0.4 MG/ML INJ IVP PRN (19:18)
[2021-03-16] MEDS ORDERED: Acetaminophen 325 MG TABLET PO PRN (19:18)
[2021-03-16] MEDS ORDERED: Ondansetron 4 MG/2 ML VIAL IVP PRN (19:18)
[2021-03-16] MEDS ORDERED: Sennosides/Docusate Sodium TABLET PO PRN (19:18)
[2021-03-16] MEDS: risperiDONE 0.25 MG TABLET PO SCH (20:39)
[2021-03-16] MEDS: carvediloL 6.25 MG TABLET PO SCH (20:39)
[2021-03-16] MEDS: Ondansetron ODT 4 MG TAB.RAPDIS PO SCH (20:41)
[2021-03-16] MEDS: Vancomycin 1,500 MG/265 ML IV.SOLN IVPB SCH (21:28)
[2021-03-17] MEDS: Meropenem 1,000 MG in Water for inj. (sterile) 20 ML IVP SCH ×2 (00:43→07:43)
[2021-03-17] MEDS: *HR* Heparin 5,000 UNIT/ML VIAL SQ SCH ×3 (06:45→21:12)
[2021-03-17 07:04] LABS: VBG Ionized Calcium 1.27 mmol/L (1.15-1.35)
[2021-03-17 07:12] LABS: Red Cell Distribution Width 17.6 % (11.5-14.5)
[2021-03-17 07:13] LABS: Basophils % 0.4 %; Eosinophils # 0.2 K/mcL (0.0-0.6); Eosinophils % 2.4 %; Hematocrit 27.7 % (37.5-50.1); Immature Granulocytes % 3.9 % (0-4); Lymphocytes % 13.7 %; Mean Corpuscular HGB Conc 28.9 g/dL (31.6-35.5); Mean Corpuscular Hemoglobin 24.7 pg (28.0-33.3); Mean Corpuscular Volume 85.5 fL (83.0-100.0); Mean Platelet Volume 10.5 fL (9.4-12.4); Monocytes # 0.6 K/mcL (0.0-1.3); Monocytes % 8.3 %; Platelet Count 184 K/mcL (140-400); Red Blood Count 3.24 M/mcL (4.19-5.50); Segmented Neutrophils % 71.3 %; White Blood Count 7.2 K/mcL (4.3-11.1)
[2021-03-17 07:14] LABS: Neutrophils # 5.1 K/mcL (1.6-8.9)
[2021-03-17] MEDS: Ondansetron ODT 4 MG TAB.RAPDIS PO SCH ×3 (07:41→15:43)
[2021-03-17] MEDS: risperiDONE 0.25 MG TABLET PO SCH ×2 (07:41→21:12)
[2021-03-17] MEDS: Zinc Sulfate 220 MG CAPSULE PO SCH (07:42)
[2021-03-17] MEDS: Magnesium Oxide 400 MG TABLET PO SCH (07:42)
[2021-03-17] MEDS: Loratadine 10 MG TABLET PO SCH (07:42)
[2021-03-17] MEDS: Renal Vitamin 1 CAP CAPSULE PO SCH (07:42)
[2021-03-17] MEDS: carvediloL 6.25 MG TABLET PO SCH ×2 (07:42→21:13)
[2021-03-17 08:13] LABS: Alanine Aminotransferase 7 Units/L (7-52); Albumin 2.4 g/dL (3.5-5.7); Albumin/Globulin Ratio 1.4 (1.1-2.2); Alkaline Phosphatase 47 Units/L (34-104); Aspartate Amino Transferase 7 Units/L (13-39); BUN/Creatinine Ratio 24 (6-26); Bilirubin,Total 0.3 mg/dL (0.3-1.0); Blood Urea Nitrogen 33 mg/dL (8-23); Calcium 8.3 mg/dL (8.6-10.3); Carbon Dioxide 40 mEq/L (23-29); Chloride 110 mEq/L (98-107); Globulin 1.7 g/dL (2.4-3.5); Glucose 109 mg/dL (70-105); Magnesium 1.9 mg/dL (1.6-2.6); Osmolality,Calculated 326 (280-300); Phosphorous 3.7 mg/dL (2.7-4.5); Potassium 4.4 mEq/L (3.5-5.1); Sodium 154 mEq/L (136-145); Total Protein 4.1 g/dL (6.4-8.9); eGFR For African Americans > 60 (> 60); eGFR For Non-African Americans 52 (> 60)
[2021-03-17] MEDS: Piperacillin/Tazobactam 3.375 GM in 0.9 % Sodium Chloride Mini Bag 100 ML IVPB SCH (15:43)
[2021-03-17] MEDS: *HR* HYDROcodone/Acet 5/325 mg TABLET PO PRN (21:16)
[2021-03-18] MEDS: Piperacillin/Tazobactam 3.375 GM in 0.9 % Sodium Chloride Mini Bag 100 ML IVPB SCH ×4 (01:35→23:43)
[2021-03-18 02:26] LABS: VBG Ionized Calcium 1.18 mmol/L (1.15-1.35)
[2021-03-18 02:57] LABS: Alanine Aminotransferase 6 Units/L (7-52); Albumin 2.4 g/dL (3.5-5.7); Albumin/Globulin Ratio 1.3 (1.1-2.2); Alkaline Phosphatase 48 Units/L (34-104); Aspartate Amino Transferase 8 Units/L (13-39); BUN/Creatinine Ratio 26 (6-26); Bilirubin,Total 0.3 mg/dL (0.3-1.0); Blood Urea Nitrogen 33 mg/dL (8-23); Calcium 8.3 mg/dL (8.6-10.3); Carbon Dioxide 36 mEq/L (23-29); Chloride 104 mEq/L (98-107); Globulin 1.8 g/dL (2.4-3.5); Glucose 128 mg/dL (70-105); Magnesium 1.8 mg/dL (1.6-2.6); Osmolality,Calculated 305 (280-300); Phosphorous 3.3 mg/dL (2.7-4.5); Potassium 4.4 mEq/L (3.5-5.1); Sodium 143 mEq/L (136-145); Total Protein 4.2 g/dL (6.4-8.9); eGFR For African Americans > 60 (> 60); eGFR For Non-African Americans 58 (> 60)
[2021-03-18 04:38] LABS: Red Blood Count 3.37 M/mcL (4.19-5.50); White Blood Count 8.3 K/mcL (4.3-11.1)
[2021-03-18 04:39] LABS: Basophils % 0.2 %; Eosinophils # 0.2 K/mcL (0.0-0.6); Eosinophils % 2.4 %; Hematocrit 28.6 % (37.5-50.1); Hemoglobin 8.3 g/dL (12.9-16.9); Immature Granulocytes % 3.8 % (0-4); Lymphocytes % 11.8 %; Mean Corpuscular Hemoglobin 24.6 pg (28.0-33.3); Mean Corpuscular Volume 84.9 fL (83.0-100.0); Mean Platelet Volume 10.4 fL (9.4-12.4); Monocytes # 0.7 K/mcL (0.0-1.3); Monocytes % 8.1 %; Neutrophils # 6.1 K/mcL (1.6-8.9); Platelet Count 210 K/mcL (140-400); Red Cell Distribution Width 17.5 % (11.5-14.5); Segmented Neutrophils % 73.7 %
[2021-03-18] MEDS: *HR* Heparin 5,000 UNIT/ML VIAL SQ SCH ×3 (06:39→22:51)
[2021-03-18] MEDS: Renal Vitamin 1 CAP CAPSULE PO SCH (09:02)
[2021-03-18] MEDS: Ondansetron ODT 4 MG TAB.RAPDIS PO SCH ×3 (09:02→16:53)
[2021-03-18] MEDS: Zinc Sulfate 220 MG CAPSULE PO SCH (09:02)
[2021-03-18] MEDS: carvediloL 6.25 MG TABLET PO SCH ×2 (09:02→20:41)
[2021-03-18] MEDS: risperiDONE 0.25 MG TABLET PO SCH ×2 (09:03→20:42)
[2021-03-18] MEDS: Magnesium Oxide 400 MG TABLET PO SCH (09:03)
[2021-03-18] MEDS: *HR* HYDROcodone/Acet 5/325 mg TABLET PO PRN ×2 (09:08→20:42)
[2021-03-18] MEDS: Loratadine 10 MG TABLET PO SCH (09:08)
[2021-03-18] MEDS: Vancomycin 1,500 MG/265 ML IV.SOLN IVPB SCH (20:42)
[2021-03-19 03:04] LABS: Basophils % 0.5 %; Eosinophils % 2.2 %; Immature Granulocytes % 4.2 % (0-4); Mean Corpuscular Volume 86.6 fL (83.0-100.0)
[2021-03-19 03:05] LABS: Eosinophils # 0.1 K/mcL (0.0-0.6); Hematocrit 27.8 % (37.5-50.1); Hemoglobin 7.9 g/dL (12.9-16.9); Lymphocytes # 1.1 K/mcL (0.6-4.6); Lymphocytes % 17.3 %; Mean Corpuscular HGB Conc 28.4 g/dL (31.6-35.5); Mean Corpuscular Hemoglobin 24.6 pg (28.0-33.3); Mean Platelet Volume 10.6 fL (9.4-12.4); Monocytes # 0.6 K/mcL (0.0-1.3); Monocytes % 9.4 %; Neutrophils # 4.3 K/mcL (1.6-8.9); Platelet Count 219 K/mcL (140-400); Red Blood Count 3.21 M/mcL (4.19-5.50); Red Cell Distribution Width 17.3 % (11.5-14.5); Segmented Neutrophils % 66.4 %; White Blood Count 6.5 K/mcL (4.3-11.1)
[2021-03-19 03:06] LABS: VBG Ionized Calcium 1.27 mmol/L (1.15-1.35)
[2021-03-19 03:29] LABS: Albumin 2.4 g/dL (3.5-5.7); Albumin/Globulin Ratio 1.3 (1.1-2.2); Bilirubin,Total 0.3 mg/dL (0.3-1.0); Calcium 8.1 mg/dL (8.6-10.3); Globulin 1.8 g/dL (2.4-3.5); Magnesium 1.9 mg/dL (1.6-2.6); Phosphorous 4.1 mg/dL (2.7-4.5); Potassium 4.3 mEq/L (3.5-5.1); Total Protein 4.2 g/dL (6.4-8.9)
[2021-03-19 04:16] LABS: Anisocytosis 1+ (Not Present); Hypochromasia Present (Not Present); Platelet Estimate Normal (Normal)
[2021-03-19] MEDS: *HR* Heparin 5,000 UNIT/ML VIAL SQ SCH ×3 (05:52→20:43)
[2021-03-19] MEDS: Loratadine 10 MG TABLET PO SCH (07:58)
[2021-03-19] MEDS: Renal Vitamin 1 CAP CAPSULE PO SCH (07:59)
[2021-03-19] MEDS: risperiDONE 0.25 MG TABLET PO SCH ×2 (07:59→20:42)
[2021-03-19] MEDS: Zinc Sulfate 220 MG CAPSULE PO SCH (07:59)
[2021-03-19] MEDS: Ondansetron ODT 4 MG TAB.RAPDIS PO SCH ×3 (07:59→16:17)
[2021-03-19] MEDS: Magnesium Oxide 400 MG TABLET PO SCH (07:59)
[2021-03-19] MEDS: carvediloL 6.25 MG TABLET PO SCH ×2 (08:00→16:17)
[2021-03-19] MEDS: Piperacillin/Tazobactam 3.375 GM in 0.9 % Sodium Chloride Mini Bag 100 ML IVPB SCH ×2 (08:00→16:17)
[2021-03-19] MEDS: *HR* HYDROcodone/Acet 5/325 mg TABLET PO PRN ×3 (08:01→20:42)
[2021-03-19] MEDS ORDERED: Nitroglycerin 0.4 MG TAB.SUBL SL ONE (09:54)
[2021-03-19] MEDS: Ipratropium/Albuterol Neb 3 ML IH SCH ×4 (10:19→19:59)
[2021-03-20] MEDS: Ipratropium/Albuterol Neb 3 ML IH SCH ×7 (00:10→23:49)
[2021-03-20] MEDS: Piperacillin/Tazobactam 3.375 GM in 0.9 % Sodium Chloride Mini Bag 100 ML IVPB SCH ×3 (00:38→17:43)
[2021-03-20] MEDS: *HR* HYDROcodone/Acet 5/325 mg TABLET PO PRN (04:08)
[2021-03-20] MEDS: *HR* Heparin 5,000 UNIT/ML VIAL SQ SCH ×3 (05:17→21:02)
[2021-03-20] MEDS: risperiDONE 0.25 MG TABLET PO SCH ×2 (08:42→21:02)
[2021-03-20] MEDS: Renal Vitamin 1 CAP CAPSULE PO SCH (08:42)
[2021-03-20] MEDS: Ondansetron ODT 4 MG TAB.RAPDIS PO SCH ×3 (08:42→17:44)
[2021-03-20] MEDS: Zinc Sulfate 220 MG CAPSULE PO SCH (08:42)
[2021-03-20] MEDS: Magnesium Oxide 400 MG TABLET PO SCH (08:42)
[2021-03-20] MEDS: Loratadine 10 MG TABLET PO SCH (08:42)
[2021-03-20] MEDS: carvediloL 6.25 MG TABLET PO SCH ×2 (08:43→17:44)
[2021-03-20 08:49] LABS: VBG Ionized Calcium 1.13 mmol/L (1.15-1.35)
[2021-03-20 08:53] LABS: Hemoglobin 8.1 g/dL (12.9-16.9); Red Blood Count 3.37 M/mcL (4.19-5.50); Red Cell Distribution Width 17.2 % (11.5-14.5)
[2021-03-20 08:54] LABS: Basophils % 0.4 %; Eosinophils # 0.2 K/mcL (0.0-0.6); Hematocrit 28.2 % (37.5-50.1); Immature Granulocytes % 3.9 % (0-4); Lymphocytes % 17.9 %; Mean Corpuscular HGB Conc 28.7 g/dL (31.6-35.5); Mean Corpuscular Volume 83.7 fL (83.0-100.0); Monocytes # 0.5 K/mcL (0.0-1.3); Monocytes % 8.5 %; Neutrophils # 3.6 K/mcL (1.6-8.9); Platelet Count 208 K/mcL (140-400); Segmented Neutrophils % 66.3 %; White Blood Count 5.4 K/mcL (4.3-11.1)
[2021-03-20 09:21] LABS: Alanine Aminotransferase 5 Units/L (7-52); Albumin 2.6 g/dL (3.5-5.7); Albumin/Globulin Ratio 1.3 (1.1-2.2); Alkaline Phosphatase 52 Units/L (34-104); Aspartate Amino Transferase 8 Units/L (13-39); BUN/Creatinine Ratio 21 (6-26); Bilirubin,Total 0.3 mg/dL (0.3-1.0); Blood Urea Nitrogen 28 mg/dL (8-23); Calcium 8.4 mg/dL (8.6-10.3); Carbon Dioxide 40 mEq/L (23-29); Chloride 103 mEq/L (98-107); Glucose 100 mg/dL (70-105); Magnesium 1.9 mg/dL (1.6-2.6); Osmolality,Calculated 304 (280-300); Phosphorous 3.4 mg/dL (2.7-4.5); Sodium 144 mEq/L (136-145); Total Protein 4.6 g/dL (6.4-8.9); eGFR For African Americans > 60 (> 60); eGFR For Non-African Americans 53 (> 60)
[2021-03-20 09:33] LABS: Hypochromasia Present (Not Present); Platelet Estimate Normal (Normal)
[2021-03-20] MEDS ORDERED: Furosemide 20 MG/2 ML VIAL IVP ONE (09:44)
[2021-03-20] MEDS: Vancomycin 1,500 MG/265 ML IV.SOLN IVPB SCH (21:23)
[2021-03-21] MEDS: Piperacillin/Tazobactam 3.375 GM in 0.9 % Sodium Chloride Mini Bag 100 ML IVPB SCH ×3 (00:08→17:10)
[2021-03-21] MEDS: Ipratropium/Albuterol Neb 3 ML IH SCH ×6 (04:01→23:14)
[2021-03-21 06:45] LABS: Hematocrit 27.5 % (37.5-50.1); Mean Corpuscular HGB Conc 29.1 g/dL (31.6-35.5); Mean Corpuscular Hemoglobin 23.7 pg (28.0-33.3); Mean Corpuscular Volume 81.6 fL (83.0-100.0); Mean Platelet Volume 10.5 fL (9.4-12.4); Platelet Count 148 K/mcL (140-400); Red Blood Count 3.37 M/mcL (4.19-5.50); Red Cell Distribution Width 17.2 % (11.5-14.5); White Blood Count 7.1 K/mcL (4.3-11.1)
[2021-03-21] MEDS: *HR* Heparin 5,000 UNIT/ML VIAL SQ SCH ×3 (07:21→21:48)
[2021-03-21] MEDS: Ondansetron ODT 4 MG TAB.RAPDIS PO SCH ×3 (07:47→16:59)
[2021-03-21] MEDS: risperiDONE 0.25 MG TABLET PO SCH ×2 (07:47→21:48)
[2021-03-21] MEDS: Zinc Sulfate 220 MG CAPSULE PO SCH (07:47)
[2021-03-21] MEDS: Loratadine 10 MG TABLET PO SCH (07:47)
[2021-03-21] MEDS: Renal Vitamin 1 CAP CAPSULE PO SCH (07:48)
[2021-03-21] MEDS: carvediloL 6.25 MG TABLET PO SCH ×2 (07:48→16:59)
[2021-03-21] MEDS: Magnesium Oxide 400 MG TABLET PO SCH (07:48)
[2021-03-21 09:13] LABS: BUN/Creatinine Ratio 19 (6-26); Blood Urea Nitrogen 25 mg/dL (8-23); Carbon Dioxide 38 mEq/L (23-29); Chloride 103 mEq/L (98-107); Glucose 111 mg/dL (70-105); Osmolality,Calculated 303 (280-300); Potassium 4.3 mEq/L (3.5-5.1); Sodium 144 mEq/L (136-145); eGFR For African Americans > 60 (> 60); eGFR For Non-African Americans 56 (> 60)
[2021-03-21] MEDS: *HR* HYDROcodone/Acet 5/325 mg TABLET PO PRN (16:58)
[2021-03-22] MEDS: Piperacillin/Tazobactam 3.375 GM in 0.9 % Sodium Chloride Mini Bag 100 ML IVPB SCH ×3 (00:12→17:54)
[2021-03-22] MEDS: Ipratropium/Albuterol Neb 3 ML IH SCH ×6 (03:35→23:55)
[2021-03-22] MEDS: *HR* HYDROcodone/Acet 5/325 mg TABLET PO PRN (03:49)
[2021-03-22] MEDS: *HR* Heparin 5,000 UNIT/ML VIAL SQ SCH ×3 (05:12→21:21)
[2021-03-22] MEDS: Zinc Sulfate 220 MG CAPSULE PO SCH (08:08)
[2021-03-22] MEDS: risperiDONE 0.25 MG TABLET PO SCH ×2 (08:08→21:21)
[2021-03-22] MEDS: Loratadine 10 MG TABLET PO SCH (08:08)
[2021-03-22] MEDS: Renal Vitamin 1 CAP CAPSULE PO SCH (08:08)
[2021-03-22] MEDS: Magnesium Oxide 400 MG TABLET PO SCH (08:08)
[2021-03-22] MEDS: carvediloL 6.25 MG TABLET PO SCH ×2 (08:08→17:55)
[2021-03-22] MEDS: Ondansetron ODT 4 MG TAB.RAPDIS PO SCH ×3 (08:08→17:55)
[2021-03-22 10:18] LABS: Mean Platelet Volume 10.4 fL (9.4-12.4)
[2021-03-22 10:19] LABS: Hematocrit 28.7 % (37.5-50.1); Hemoglobin 8.3 g/dL (12.9-16.9); Mean Corpuscular HGB Conc 28.9 g/dL (31.6-35.5); Mean Corpuscular Hemoglobin 24.2 pg (28.0-33.3); Mean Corpuscular Volume 83.7 fL (83.0-100.0); Platelet Count 217 K/mcL (140-400); Red Blood Count 3.43 M/mcL (4.19-5.50); Red Cell Distribution Width 17.2 % (11.5-14.5); White Blood Count 5.8 K/mcL (4.3-11.1)
[2021-03-22] MEDS ORDERED: Furosemide 20 MG/2 ML VIAL IVP SCH (10:30)
[2021-03-22 10:42] LABS: Blood Urea Nitrogen 26 mg/dL (8-23); Calcium 8.3 mg/dL (8.6-10.3); Carbon Dioxide 40 mEq/L (23-29); Chloride 102 mEq/L (98-107); Glucose 110 mg/dL (70-105); Osmolality,Calculated 307 (280-300); Potassium 3.8 mEq/L (3.5-5.1); Sodium 146 mEq/L (136-145)
[2021-03-22 11:27] LABS: BUN/Creatinine Ratio 21 (6-26); eGFR For African Americans > 60 (> 60); eGFR For Non-African Americans 59 (> 60)
[2021-03-22 17:27] LABS: VBG HCO3 39 mEq/L (21-27); VBG PCO2 40 mmHg (41-51); VBG PO2 208 mmHg (25-50)
[2021-03-22] MEDS ORDERED: acetaZOLAMIDE 500 MG in Water for inj. (sterile) 5 ML IVP ONE ×2 (17:55→18:30)
[2021-03-23] MEDS: Ipratropium/Albuterol Neb 3 ML IH SCH ×5 (03:44→19:51)
[2021-03-23] MEDS: *HR* Heparin 5,000 UNIT/ML VIAL SQ SCH ×3 (05:12→20:52)
[2021-03-23 05:54] LABS: VBG HCO3 39 mEq/L (21-27); VBG PCO2 71 mmHg (41-51); VBG PH 7.35 pH Units (7.32-7.42); VBG PO2 86 mmHg (25-50)
[2021-03-23 05:54] LABS: Mean Corpuscular Hemoglobin 23.8 pg (28.0-33.3)
[2021-03-23 05:56] LABS: Hemoglobin 7.6 g/dL (12.9-16.9); Mean Corpuscular HGB Conc 28.1 g/dL (31.6-35.5); Mean Corpuscular Volume 84.6 fL (83.0-100.0); Mean Platelet Volume 10.4 fL (9.4-12.4); Platelet Count 208 K/mcL (140-400); Red Blood Count 3.19 M/mcL (4.19-5.50); Red Cell Distribution Width 17.1 % (11.5-14.5); White Blood Count 5.6 K/mcL (4.3-11.1)
[2021-03-23 06:27] LABS: BUN/Creatinine Ratio 25 (6-26); Blood Urea Nitrogen 32 mg/dL (8-23); Calcium 8.1 mg/dL (8.6-10.3); Carbon Dioxide 40 mEq/L (23-29); Chloride 101 mEq/L (98-107); Glucose 126 mg/dL (70-105); Osmolality,Calculated 302 (280-300); Potassium 3.8 mEq/L (3.5-5.1); Sodium 142 mEq/L (136-145); eGFR For African Americans > 60 (> 60); eGFR For Non-African Americans 56 (> 60)
[2021-03-23] MEDS: Ondansetron ODT 4 MG TAB.RAPDIS PO SCH (08:29)
[2021-03-23] MEDS: Zinc Sulfate 220 MG CAPSULE PO SCH (08:29)
[2021-03-23] MEDS: Magnesium Oxide 400 MG TABLET PO SCH (08:30)
[2021-03-23] MEDS: Loratadine 10 MG TABLET PO SCH (08:30)
[2021-03-23] MEDS: Renal Vitamin 1 CAP CAPSULE PO SCH (08:30)
[2021-03-23] MEDS: risperiDONE 0.25 MG TABLET PO SCH ×2 (08:30→20:52)
[2021-03-23] MEDS: carvediloL 6.25 MG TABLET PO SCH ×2 (08:30→17:46)
[2021-03-23] MEDS: Furosemide 20 MG TABLET PO SCH (08:35)
[2021-03-24] MEDS: Ipratropium/Albuterol Neb 3 ML IH SCH ×7 (00:21→23:42)
[2021-03-24 06:11] LABS: ABG Base Excess 11 mEq/L (-2 to 3); ABG HCO3 37 mEq/L (21-27); ABG Oxygen Saturation 97 % (95-98); ABG PCO2 59 mmHg (35-45); ABG PO2 89 mmHg (85-104); ABG TCO2 39 mEq/L (20-26); Blood Gas Modality NIV
[2021-03-24] MEDS: *HR* Heparin 5,000 UNIT/ML VIAL SQ SCH ×3 (06:30→20:57)
[2021-03-24] MEDS: Zinc Sulfate 220 MG CAPSULE PO SCH (09:40)
[2021-03-24] MEDS: Renal Vitamin 1 CAP CAPSULE PO SCH (09:40)
[2021-03-24] MEDS: carvediloL 6.25 MG TABLET PO SCH ×2 (09:41→16:25)
[2021-03-24] MEDS: Furosemide 20 MG TABLET PO SCH (09:41)
[2021-03-24] MEDS: Loratadine 10 MG TABLET PO SCH (09:41)
[2021-03-24] MEDS: Magnesium Oxide 400 MG TABLET PO SCH (09:41)
[2021-03-24] MEDS: risperiDONE 0.25 MG TABLET PO SCH ×2 (09:41→20:57)
[2021-03-24] MEDS ORDERED: Nitroglycerin 0.4 MG TAB.SUBL SL PRN (10:21)
[2021-03-24 10:32] LABS: Hematocrit 27.8 % (37.5-50.1); Hemoglobin 8.2 g/dL (12.9-16.9); Mean Corpuscular HGB Conc 29.5 g/dL (31.6-35.5); Mean Corpuscular Hemoglobin 24.1 pg (28.0-33.3); Mean Corpuscular Volume 81.8 fL (83.0-100.0); Mean Platelet Volume 10.5 fL (9.4-12.4); Platelet Count 210 K/mcL (140-400); Red Cell Distribution Width 17.2 % (11.5-14.5); White Blood Count 6.8 K/mcL (4.3-11.1)
[2021-03-24 10:41] LABS: VBG HCO3 32 mEq/L (21-27); VBG PCO2 51 mmHg (41-51); VBG PH 7.41 pH Units (7.32-7.42); VBG PO2 84 mmHg (25-50)
[2021-03-24 10:52] LABS: BUN/Creatinine Ratio 24 (6-26); Blood Urea Nitrogen 34 mg/dL (8-23); Calcium 8.5 mg/dL (8.6-10.3); Carbon Dioxide 35 mEq/L (23-29); Chloride 101 mEq/L (98-107); Glucose 132 mg/dL (70-105); Osmolality,Calculated 299 (280-300); Potassium 4.1 mEq/L (3.5-5.1); Sodium 140 mEq/L (136-145); eGFR For African Americans > 60 (> 60); eGFR For Non-African Americans 51 (> 60)
[2021-03-24 11:41] LABS: Troponin I < 0.03 ng/mL (< 0.04)
[2021-03-24] MEDS ORDERED: Furosemide 20 MG TABLET PO ONE (12:49)
[2021-03-25] MEDS: Ipratropium/Albuterol Neb 3 ML IH SCH ×6 (03:45→23:57)
[2021-03-25] MEDS: *HR* Heparin 5,000 UNIT/ML VIAL SQ SCH ×3 (03:52→21:16)
[2021-03-25 05:00] LABS: Hematocrit 29.4 % (37.5-50.1); Hemoglobin 8.8 g/dL (12.9-16.9); Mean Corpuscular HGB Conc 29.9 g/dL (31.6-35.5); Mean Corpuscular Hemoglobin 23.9 pg (28.0-33.3); Mean Corpuscular Volume 79.9 fL (83.0-100.0); Mean Platelet Volume 10.4 fL (9.4-12.4); Platelet Count 225 K/mcL (140-400); Red Blood Count 3.68 M/mcL (4.19-5.50); Red Cell Distribution Width 17.2 % (11.5-14.5); White Blood Count 7.2 K/mcL (4.3-11.1)
[2021-03-25 05:23] LABS: BUN/Creatinine Ratio 29 (6-26); Blood Urea Nitrogen 36 mg/dL (8-23); Carbon Dioxide 33 mEq/L (23-29); Chloride 99 mEq/L (98-107); Glucose 91 mg/dL (70-105); Magnesium 1.8 mg/dL (1.6-2.6); Osmolality,Calculated 296 (280-300); Potassium 3.9 mEq/L (3.5-5.1); Sodium 139 mEq/L (136-145); eGFR For African Americans > 60 (> 60); eGFR For Non-African Americans 58 (> 60)
[2021-03-25] MEDS: Zinc Sulfate 220 MG CAPSULE PO SCH (08:40)
[2021-03-25] MEDS: Renal Vitamin 1 CAP CAPSULE PO SCH (08:40)
[2021-03-25] MEDS: Magnesium Oxide 400 MG TABLET PO SCH (08:40)
[2021-03-25] MEDS: carvediloL 6.25 MG TABLET PO SCH ×2 (08:40→17:43)
[2021-03-25] MEDS: Loratadine 10 MG TABLET PO SCH (08:41)
[2021-03-25] MEDS: risperiDONE 0.25 MG TABLET PO SCH ×2 (08:41→21:15)
[2021-03-25] MEDS: Furosemide 20 MG TABLET PO SCH (08:41)
[2021-03-25] MEDS: *HR* HYDROcodone/Acet 5/325 mg TABLET PO PRN ×2 (14:33→21:16)
[2021-03-26 01:52] LABS: Hematocrit 28.7 % (37.5-50.1); Hemoglobin 8.8 g/dL (12.9-16.9); Mean Corpuscular HGB Conc 30.7 g/dL (31.6-35.5); Mean Corpuscular Hemoglobin 24.2 pg (28.0-33.3); Mean Corpuscular Volume 79.1 fL (83.0-100.0); Mean Platelet Volume 10.2 fL (9.4-12.4); Platelet Count 210 K/mcL (140-400); Red Blood Count 3.63 M/mcL (4.19-5.50); Red Cell Distribution Width 17.1 % (11.5-14.5); White Blood Count 7.4 K/mcL (4.3-11.1)
[2021-03-26 02:09] LABS: BUN/Creatinine Ratio 32 (6-26); Blood Urea Nitrogen 42 mg/dL (8-23); Calcium 8.7 mg/dL (8.6-10.3); Carbon Dioxide 37 mEq/L (23-29); Chloride 97 mEq/L (98-107); Glucose 145 mg/dL (70-105); Magnesium 1.9 mg/dL (1.6-2.6); Osmolality,Calculated 299 (280-300); Potassium 4.1 mEq/L (3.5-5.1); Sodium 138 mEq/L (136-145); eGFR For African Americans > 60 (> 60); eGFR For Non-African Americans 55 (> 60)
[2021-03-26] MEDS: Ipratropium/Albuterol Neb 3 ML IH SCH ×5 (04:00→20:07)
[2021-03-26] MEDS: *HR* Heparin 5,000 UNIT/ML VIAL SQ SCH ×3 (06:04→20:28)
[2021-03-26] MEDS: Furosemide 20 MG TABLET PO SCH (10:28)
[2021-03-26] MEDS: Renal Vitamin 1 CAP CAPSULE PO SCH (10:28)
[2021-03-26] MEDS: risperiDONE 0.25 MG TABLET PO SCH ×2 (10:28→20:28)
[2021-03-26] MEDS: carvediloL 6.25 MG TABLET PO SCH ×2 (10:28→17:09)
[2021-03-26] MEDS: Zinc Sulfate 220 MG CAPSULE PO SCH (10:28)
[2021-03-26] MEDS: Loratadine 10 MG TABLET PO SCH (10:29)
[2021-03-26] MEDS: Magnesium Oxide 400 MG TABLET PO SCH (10:29)
[2021-03-26] MEDS: *HR* HYDROcodone/Acet 5/325 mg TABLET PO PRN (11:40)
[2021-03-27] MEDS: Ipratropium/Albuterol Neb 3 ML IH SCH ×5 (00:15→15:59)
[2021-03-27] MEDS: *HR* Heparin 5,000 UNIT/ML VIAL SQ SCH (05:16)
[2021-03-27 06:35] LABS: Hematocrit 28.7 % (37.5-50.1); Hemoglobin 8.4 g/dL (12.9-16.9); Mean Corpuscular HGB Conc 29.3 g/dL (31.6-35.5); Mean Corpuscular Hemoglobin 23.5 pg (28.0-33.3); Mean Corpuscular Volume 80.4 fL (83.0-100.0); Mean Platelet Volume 10.8 fL (9.4-12.4); Platelet Count 208 K/mcL (140-400); Red Blood Count 3.57 M/mcL (4.19-5.50); Red Cell Distribution Width 16.8 % (11.5-14.5); White Blood Count 7.9 K/mcL (4.3-11.1)
[2021-03-27 06:59] LABS: BUN/Creatinine Ratio 43 (6-26); Blood Urea Nitrogen 49 mg/dL (8-23); Calcium 8.7 mg/dL (8.6-10.3); Carbon Dioxide 38 mEq/L (23-29); Chloride 98 mEq/L (98-107); Glucose 158 mg/dL (70-105); Osmolality,Calculated 304 (280-300); Sodium 139 mEq/L (136-145); eGFR For African Americans > 60 (> 60); eGFR For Non-African Americans > 60 (> 60)
[2021-03-27 07:06] VITALS: PULSE 63
[2021-03-27] MEDS: carvediloL 6.25 MG TABLET PO SCH (08:58)
[2021-03-27] MEDS: Zinc Sulfate 220 MG CAPSULE PO SCH (08:58)
[2021-03-27] MEDS: Furosemide 20 MG TABLET PO SCH (08:59)
[2021-03-27] MEDS: risperiDONE 0.25 MG TABLET PO SCH (08:59)
[2021-03-27] MEDS: Loratadine 10 MG TABLET PO SCH (08:59)
[2021-03-27] MEDS: Renal Vitamin 1 CAP CAPSULE PO SCH (08:59)
[2021-03-27] MEDS: Magnesium Oxide 400 MG TABLET PO SCH (08:59)
[2021-03-27] MEDS ORDERED: acetaZOLAMIDE 500 MG in Water for inj. (sterile) 5 ML IVP ONE (09:11)
[2021-03-27 10:32] VITALS: BP 114/78; TEMP 97.8
[2021-03-27 11:46] VITALS: O2SAT 92
== END 2021-03-27 16:24 | disposition other institution (70) | DRG 710 ==
LOC: 2NENU 18:41 → EMEROOARM 18:41 → 2NENU 22:28 → ICNU 03-13 10:49 → SUATTDRO 03-13 14:00 → 2NNU 03-16 11:56
PROVIDERS: ADMIT Family Medicine; ATTEND Internal Medicine